=== PATIENT | female | born 1945 | race Caucasian/White ===

== ENCOUNTER 2018-12-07 19:16 | Inpatient (IN) | payer OTHER, MEDICARE ==
--- NOTE | 2018-12-07 19:44 | PDOC ---
History of Present Illness - General Chief Complaint: Chest Pain Stated Complaint: CHEST PAIN Time Seen by Provider: 12/07/18 19:34 - History of Present Illness Initial Comments: 12/07/18 19:40 73 yo F with h/o HTN, HLD, AAA, COPD who p/w right sided chest pain. Patient reports 1 week of exertional, non-pleuritic, non radiating, pressure type, worsening, right sided chest pain, slightly improved with supine positioning. Pain present at rest. Also endorses transietn SOB, this evening, and "heart racing" at rest. Patient reports recent medication change x 1 week ago by PMD. Discontinued Losartan Amlodipine, and now on Nifedipine, and Candasartan. Recent Epidural x 1 week. Denies prolonged immobilization or recent flights, or trauma. Patient denies [place], vision change, palpitations, cough, wheezing, orthopena, PND , leg swelling/pain, N/V, F,C, urinary complaints, hematuria, BPR, abdominal pain, diarrhea, constipation, lightheadedness, weakness, sensory changes. PMHx: as noted above. Denies h/o DVT/PE, ACS/FL, stent placement, CABG. Does not f/w cardiology. ROS: as noted SHx: distant 50 year ppd smoking hx. Allergies: NKDA PMD: Dr. Snell Past History - Past Medical History Allergies/Adverse Reactions: Allergies Allergy/AdvReac Type Severity Reaction Status Date / Time Iodinated Contrast- Oral and Allergy Verified 12/07/18 21:14 IV Dye IV CONTRAST Allergy Uncoded 12/07/18 19:27 Home Medications: Ambulatory Orders Candesartan Cilexetil [Atacand] 16 mg PO DAILY 12/07/18 Escitalopram Oxalate [Lexapro -] 10 mg PO DAILY 12/07/18 Metoprolol Succinate [Toprol Xl] 50 mg PO DAILY 12/07/18 Nifedipine [Procardia Xl] 30 mg PO DAILY 12/07/18 Pregabalin [Lyrica] 25 mg PO BID 12/07/18 Cardiac Disorders: Yes COPD: Yes HTN: Yes Hypercholesterolemia: Yes Thyroid Disease: Yes (hyperthyroidism) Other medical history: sylvian aly syndrome - Surgical History Abdominal Surgery: Yes Cholecystectomy: Yes - Suicide/Smoking/Psychosocial Hx Smoking Status: Yes Smoking History: Never smoked Have you smoked in the past 12 months: No Number of Cigarettes Smoked Daily: 0 Information on smoking cessation initiated: No 'Breaking Loose' booklet given: 01/19/15 Hx Alcohol Use: No Drug/Substance Use Hx: No Substance Use Type: None Hx Substance Use Treatment: No Review of Systems - Review of Systems Comments:: 12/07/18 19:41 GENERAL/CONSTITUTIONAL: No fever or chills. No weakness. HEAD, EYES, EARS, NOSE AND THROAT: No change in vision. No ear pain or discharge. No sore throat. CARDIOVASCULAR: No chest pain or shortness of breath RESPIRATORY: No cough, wheezing, or hemoptysis. GASTROINTESTINAL: No nausea, vomiting, diarrhea or constipation. GENITOURINARY: No dysuria, frequency, or change in urination. MUSCULOSKELETAL: No joint or muscle swelling or pain. No neck or back pain. SKIN: No rash NEUROLOGIC: No headache, vertigo, loss of consciousness, or change in strength/ sensation. ENDOCRINE: No increased thirst. No abnormal weight change HEMATOLOGIC/LYMPHATIC: No anemia, easy bleeding, or history of blood clots. ALLERGIC/IMMUNOLOGIC: No hives or skin allergy. *Physical Exam - Vital Signs Last Vital Signs Temp Pulse Resp BP Pulse Ox 98.1 F 137 H 16 199/82 H 100 12/07/18 19:24 12/07/18 19:24 12/07/18 19:24 12/07/18 19:24 12/07/18 19:24 - Physical Exam Comments: 12/07/18 19:41 GENERAL: Awake, alert, and fully oriented, in no acute distress HEAD: No signs of trauma, normocephalic, atraumatic EYES: PERRLA, EOMI, sclera anicteric, conjunctiva clear ENT: Auricles normal inspection, hearing grossly normal, nares patent, oropharynx clear without exudates. Moist mucosa NECK: Normal ROM, supple, no lymphadenopathy, JVD, or masses LUNGS: No distress, speaks full sentences, clear to auscultation bilaterally HEART: Irregular rate and nml rhythm, normal S1 and S2, no murmurs, rubs or gallops, peripheral pulses normal and equal bilaterally. ABDOMEN: Soft, nontender, normoactive bowel sounds. No guarding, no rebound. No masses EXTREMITIES : Normal inspection, Normal range of motion, no edema. No clubbing or cyanosis. NEUROLOGICAL: Cranial nerves II through XII grossly intact. Normal speech, normal gait, no focal sensorimotor deficits SKIN: Warm, Dry, normal turgor, no rashes or lesions noted Moderate Sedation - Procedure Monitoring Vital Signs: Procedure Monitoring Vital Signs Temperature 98.1 F 12/07/18 19:24 Pulse Rate 137 H 12/07/18 19:24 Respiratory Rate 16 12/07/18 19:24 Blood Pressure 199/82 H 12/07/18 19:24 O2 Sat by Pulse Oximetry (%) 100 12/07/18 19:24 Heart Score/ECG Review - History History: Slightly suspicious - Electrocardiogram EKG: Non specific repolarization disturbance - Age Age: >/= 65 - Risk Factors Risk Factors Heart Score: Yes Hx Hypercholesterolemia, Yes Hx Hypertension, Yes Hx Diabetes, Yes Smoking History, Yes Positive family hx of cardiac disease, Yes Hx Obesity Based on the list above the patient has:: >/=3 risk factors or Hx atherosclerotic disease - Troponin Troponin: </= normal limit - Score Heart Score - Total: 5 ED Treatment Course - LABORATORY CBC & Chemistry Diagram: 12/07/18 20:15 12/07/18 20:15 Medical Decision Making - Medical Decision Making 12/07/18 19:42 73 yo F with h/o HTN, HLD, AAA, COPD who p/w right sided chest pain. HR 137, BP 199/82, vitals otherwise wnl, AF ACS/FL r/o. Physical exam unremarkable. Will assess for HTN emergency, and evidence of end organ dysfunction. low risk PE Weils criteria. Will assess for cardiac dysarrythmias, aortic aneurysm, hypoglycemia, electrolyte abnml, metabolic and toxic derangements, acid-base disturbances, infection. 12/07/18 19:43 ED Course: EKG: Sinus tachycardia HR 127, asbent NATHALY, STD. Nml interval duration and axis Labetalol 20 12/07/18 20:27 Patient with documented IV contrast allergy ( 12/07/18). Will provide adequate IVF resuscitation and pre-contrast medication NS 1 L, Diphenhydramine, Methylprednisilone 125, Have discussed with patient risk and benefit of IV contrast study, and patient expresses understanding, and agrees to study CBC, CMP: Unremarkable 12/07/18 22:13 TSH: 0.01, T4 11.6 12/07/18 23:40 Heart score 5 12/07/18 23:40 156/71 BP, HR 106 Plan to admit tele/obs for persistent Right sided chest pain 12/07/18 23:41 CT AP, CT CHEST: Unremarkable 3.9 x 2.9 infrarenal abdominal aortic aneurysm 12/08/18 00:[address] Francesca Rodriguez. Admit to tele/obs *DC/Admit/Observation/Transfer Diagnosis at time of Disposition: Chest pain at rest, Rapid palpitations - Discharge Dispostion Decision to Admit order: Yes - Referrals Referrals: Florencio Snell MD [Primary Care Provider] - - Patient Instructions - Post Discharge Activity
[2018-12-07] MEDS ORDERED: LABETALOL HCL 5 MG/1 ML (100MG/20 ML VIAL) IVPUSH ONE (20:13)
[2018-12-07] MEDS ORDERED: methylPREDNISolone NA SUCC 125 MG/2 ML VIAL IVPUSH ONE (20:25)
[2018-12-07] MEDS ORDERED: SODIUM CHLORIDE 1,000 ML IV STA (20:27)
[2018-12-07 20:28] LABS: BASO % 0.6 % (0-2.0); EOS % 0.6 % (0-4.5); HEMATOCRIT 49.3 % (32.4-45.2); HEMOGLOBIN 17.2 GM/dL (10.7-15.3); LYMPH % 22.1 % (8-40); MCH 32.3 pg (25.7-33.7); MCHC 34.9 g/dl (32.0-36.0); MEAN CELL VOLUME 92.7 fl (80-96); MEAN PLT VOLUME 8.3 fl (7.5-11.1); MONO % 9.5 % (3.8-10.2); NEUT % 67.2 % (42.8-82.8); PLATELET COUNT 309 K/MM3 (134-434); RBC 5.32 M/mm3 (3.60-5.2); RDW 12.5 % (11.6-15.6); WHITE BLOOD COUNT 11.8 K/mm3 (4.0-10.0)
--- NOTE | 2018-12-07 20:30 | PDOC ---
Attending Attestation - Resident Resident Name: Juan Brewer - ED Attending Attestation I have performed the following: I have examined & evaluated the patient, The case was reviewed & discussed with the resident, I agree w/resident's findings & plan, Exceptions are as noted - HPI HPI: 12/07/18 20:27 The patient is a 73-year-old female with a past medical history significant for HTN, HLD, COPD, and AAA presents to the emergency department with chest pain. The patient presents with 1-week hx of worsening, right-sided chest pain, that s nonradiating and pressure-like in quality. The patient reports associated symptoms of shortness of breath and episodes of racing heart. The patient reports a recent change in medication, from Losartan and Amlodipine to Nifedipine and Candesartan about a week ago, which she believes is the cause of her symptoms. Denies prior similar symptoms. Denies hx of CAD, stents, hx of blood clots. Denies recent travel or immobilization. Denies leg swelling. Allergies: IV contrast Surgical history: Hysterectomy, cholecystectomy Social history: reports the use of tobacco, denies the use of drugs. PCP - Dr. Snell - Physicial Exam PE: 12/07/18 20:29 GENERAL: Awake, alert, and fully oriented, in no acute distress. HEAD: No signs of trauma EYES: PERRLA, EOMI, sclera anicteric, conjunctiva clear ENT: Auricles normal inspection, hearing grossly normal, nares patent, oropharynx clear without exudates. Moist mucosa NECK: Nontender, no stepoffs, Normal ROM, supple, no lymphadenopathy, JVD, or masses LUNGS: Breath sounds equal, clear to auscultation bilaterally. No wheezes, and no crackles HEART: Tachycardic, normal S1 and S2, no murmurs, rubs or gallops ABDOMEN: Soft, nontender, normoactive bowel sounds. No guarding, no rebound. No masses EXTREMITIES: Normal range of motion, no edema. No clubbing or cyanosis. No cords, erythema, or tenderness NEUROLOGICAL: Cranial nerves II through XII intact. 5/5 strength and sensation in all extremities, Normal speech, normal gait, normal cerebellar function SKIN: Warm, Dry, normal turgor, no rashes or lesions noted. - Critical Care Time Total Critical Care Time: 60 Critical Care Statement: The care of this patient involved high complexity decision making to prevent further life threatening deterioration of the patient 's condition and/or to evaluate & treat vital organ system(s) failure or risk of failure. - Medical Decision Making 12/07/18 20:29 73 F with R sided chest pressure + SOB. Noted to be hypertensive and tachycardic in ED. Pt with no DVT risk factors but given chest pain and tachycardia, will r/o PE. Pt also with h/o AAA. Denies abdominal pain but will need to evaluate aorta for dissection/aneurysm. - Labs, trop - CXR - CTA chest/abd/pelvis - Labetalol push PRN
[2018-12-07 20:40] LABS: INR 0.91 (0.83-1.09); PROTHROMBIN TIME (PATIENT) 10.7 SEC (9.7-13.0)
[2018-12-07 20:55] LABS: ALBUMIN 4.1 g/dl (3.4-5.0); ALK PHOS 87 U/L (45-117); ANION GAP 9 MMOL/L (8-16); BILIRUBIN,TOTAL 0.2 mg/dL (0.2-1); BLOOD UREA NITROGEN 17 mg/dL (7-18); CALCIUM 9.2 mg/dL (8.5-10.1); CHLORIDE 103 mmol/L (98-107); CO2 26 mmol/L (21-32); CREATININE 1.1 mg/dL (0.55-1.3); GLUCOSE,RANDOM 156 mg/dL (74-106); POTASSIUM 3.8 mmol/L (3.5-5.1); SGOT/AST 17 U/L (15-37); SGPT/ALT 28 U/L (13-61); SODIUM 138 mmol/L (136-145)
[2018-12-07 20:58] LABS: MAGNESIUM 2.4 mg/dL (1.8-2.4)
[2018-12-07] MEDS ORDERED: ASPIRIN 81 MG CHEWABLE TABLETS PO ONE (23:42)
[2018-12-08] MEDS ORDERED: ASPIRIN 81 MG CHEWABLE TABLETS ONE (00:06)
--- NOTE | 2018-12-08 00:41 | HP ---
CHIEF COMPLAINT: SOB+ Chest Pain PCP: Dr Snell HISTORY OF PRESENT ILLNESS: Pt is a 73 y/o lady with a significant past medical history of AAA, HLD, HTN, Subclavian Steel Syndrome, and COPD presented to [facility] c/o shortness of breath and chest pain for 1 week duration. Pt states that her pain is nonradiating. Pain is located mainly on right side of chest and is exacerbated with deep palpation and when lying supine. Pain preceded by palpitations. Pt endorses that last week, her medication regimen for her HTN was changed as her medications Losartan and Amlodipine were switched to Nifedipine and Candesartan. Pt attributed this to a recall of these medications. Furthermore, pt endorses that approximately 4 years ago, she experienced similar symptoms which also commenced shortly after a medication regimen change. Denies LOC, Nausea/vomiting/fevers. PSurgHx: Cholecystectomy, Social Hx Former smoker, quit 1 year ago. Used to smoke 1 1/2 pack per day. 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 was notable for: (1) BP 199 systolic (2) 2nd Troponin 0.45 (1st was .05) (3) CTA Chest--> No evidence of P.E Iodinated Contrast- Oral and IV Dye Allergy (Verified 12/07/18 21:14) IV CONTRAST Allergy (Uncoded 12/07/18 19:27) HOME MEDICATIONS: Home Medications Medication Instructions Recorded Candesartan Cilexetil [Atacand] 16 mg PO DAILY 12/07/18 Escitalopram Oxalate [Lexapro -] 10 mg PO DAILY 12/07/18 Metoprolol Succinate [Toprol Xl] 50 mg PO DAILY 12/07/18 Nifedipine [Procardia Xl] 30 mg PO DAILY 12/07/18 Pregabalin [Lyrica] 25 mg PO BID 12/07/18 REVIEW OF SYSTEMS CONSTITUTIONAL: Absent: fever, chills, diaphoresis, generalized weakness, malaise, loss of appetite, weight change HEENT: Absent: rhinorrhea, nasal congestion, throat pain, throat swelling, difficulty swallowing, mouth swelling, ear pain, eye pain, visual changes CARDIOVASCULAR: PRESENT: chest pain, palpitations, irregular heart rate, RESPIRATORY: PRESENT: shortness of breath, dyspnea with exertion GASTROINTESTINAL: Absent: abdominal pain, abdominal distension, nausea, vomiting, diarrhea, constipation, melena, hematochezia GENITOURINARY: Absent: dysuria, frequency, urgency, hesitancy, hematuria, flank pain, genital pain MUSCULOSKELETAL: Absent: myalgia, arthralgia, joint swelling, back pain, neck pain SKIN: Absent: rash, itching, pallor HEMATOLOGIC/IMMUNOLOGIC: Absent: easy bleeding, easy bruising, lymphadenopathy, frequent infections ENDOCRINE: Absent: unexplained weight gain, unexplained weight loss, heat intolerance, cold intolerance NEUROLOGIC: Absent: headache, focal weakness or paresthesias, dizziness, unsteady gait, seizure, mental status changes, bladder or bowel incontinence PSYCHIATRIC: Absent: anxiety, depression, suicidal or homicidal ideation, hallucinations. PHYSICAL EXAMINATION Vital Signs - 24 hr 12/07/18 12/07/18 19:24 20:55 Temperature 98.1 F Pulse Rate 137 H Pulse Rate [ 106 H Right] Respiratory 16 20 Rate Blood Pressure 199/82 H Blood Pressure 156/71 [Right Arm] O2 Sat by Pulse 100 97 Oximetry (%) GENERAL: AAOX3 NAD HEAD: Normal with no signs of trauma. EYES: EOMI Sclera Clear EARS, NOSE, THROAT: Ears normal, nares patent, oropharynx clear without exudates. Moist mucous membranes. NECK: Supple No JVD appreciated LUNGS:CTAB HEART: RRR nl S1S2 ABDOMEN: Soft NDNT. MUSCULOSKELETAL: FROM throughout LOWER EXTREMITIES: No clubbing cyanosis or edema NEUROLOGICAL: Cranial nerves II-XII intact. PSYCHIATRIC: Cooperative. Good eye contact. Appropriate mood and affect. SKIN: Warm, dry, normal turgor, no rashes or lesions noted, normal capillary refill. Laboratory Results - last 24 hr 12/07/18 12/07/18 12/07/18 20:15 20:15 20:15 WBC 11.8 H RBC 5.32 H Hgb 17.2 H Hct 49.3 H MCV 92.7 MCH 32.3 MCHC 34.9 RDW 12.5 Plt Count 309 MPV 8.3 Absolute Neuts (auto) 7.9 Neutrophils % 67.2 Lymphocytes % 22.1 Monocytes % 9.5 Eosinophils % 0.6 Basophils % 0.6 Nucleated RBC % 0 PT with INR 10.70 INR 0.91 Sodium Potassium Chloride Carbon Dioxide Anion Gap BUN Creatinine Creat Clearance w eGFR Random Glucose Calcium Magnesium 2.4 Total Bilirubin AST ALT Alkaline Phosphatase Creatine Kinase 38 Troponin I 0.05 Total Protein Albumin Lipase 337 TSH 12/07/18 20:15 WBC RBC Hgb Hct MCV MCH MCHC RDW Plt Count MPV Absolute Neuts (auto) Neutrophils % Lymphocytes % Monocytes % Eosinophils % Basophils % Nucleated RBC % PT with INR INR Sodium 138 Potassium 3.8 Chloride 103 Carbon Dioxide 26 Anion Gap 9 BUN 17 Creatinine 1.1 Creat Clearance w eGFR 48.96 Random Glucose 156 H Calcium 9.2 Magnesium Total Bilirubin 0.2 AST 17 ALT 28 Alkaline Phosphatase 87 Creatine Kinase Troponin I Total Protein 8.0 Albumin 4.1 Lipase TSH 0.01 L ASSESSMENT/PLAN: Pt is a 73 y/o lady with a significant past medical history of AAA, HLD, HTN, Subclavian Steel Syndrome, and COPD presented to [facility] c/o shortness of breath and chest pain for 1 week duration. #Atypical Chest Pain * Chest pain x 1 week right side nonexertional, reproducible. * Smoking history * Troponin 0.05--> 0.45, continue to trend * Cardio consult * Echocardiogram * Start ASA 81 Daily, Moderate intensity STATIN * Pt at high risk for Coronary Artery Disease in light of HTN history. May benefit from Nuclear Stress test * Current 10 year ASCVD Risk---> 7.7% (cholesterol values used were from pt's most recent values in 2014, lipid profile pending this admission). # HTN * Takes Candesartan at home. Nonformulary here, pt place don Valsartan 160 mg Daily * Procardia Er 30 MG Daily * Toprol 50 mg daily #HLD * Pt not taking any meds. Will perform lipid profile, A1C FEN * No Fluids * Monitor Electrolytes * Low Salt Diet DVT ppx: * SCD's Dispo: Tele Visit type - Emergency Visit Emergency Visit: Yes ED Registration Date: 12/08/18 Care time: The patient presented to the Emergency Department on the above date and was hospitalized for further evaluation of their emergent condition. - New Patient This patient is new to me today: Yes Date on this admission: 12/08/18 - Critical Care Critical Care patient: No
--- NOTE | 2018-12-08 04:56 | PN ---
Teaching Attending Note Name of Resident: Chong Ace ATTENDING PHYSICIAN STATEMENT I saw and evaluated the patient. I reviewed the resident's note and discussed the case with the resident. I agree with the resident's findings and plan as documented. SUBJECTIVE: OBJECTIVE: aaox3 s1 and s2 rrr lungs CTA abdomen soft non-tender no edema PERRLA ASSESSMENT AND PLAN: this is a 73y/o female patient with hx of HTN, ex smoker quit 1 year ago, DL and ?COPD presented with atypical chest pain that is located on the Right side that has been going on for over a week. She stated that she gets these episodes of fast heart beat and feels tight in her chest, moving can make the pain worse, she stated that she had similar pain and tightness few years ago, for which her twisting operator uptitrated her medication, she has not followed up with him since then plan: admit to telemetery for atypical chest pain patient is high risk for CAD due to the history of HTN - she might benefit from a Nuclear stress test will admit to tele for observation consult cardiology obtain echocardiogram star the patient on aspirin avoid DAPT at this time unless there is a suspicion for NSTEMI avoid heparin unless there is an indication c/w blood pressure control moderate intensity lipid profile trend ECG x3 - repeat if the patient is having active chest pain. trend troponin x3
[2018-12-08 06:40] LABS: BASO % 0.1 % (0-2.0); HEMATOCRIT 44.6 % (32.4-45.2); HEMOGLOBIN 15.6 GM/dL (10.7-15.3); LYMPH % 8.9 % (8-40); MCHC 34.9 g/dl (32.0-36.0); MEAN CELL VOLUME 91.6 fl (80-96); MONO % 2.4 % (3.8-10.2); NEUT % 88.6 % (42.8-82.8); PLATELET COUNT 262 K/MM3 (134-434); RBC 4.87 M/mm3 (3.60-5.2); RDW 12.3 % (11.6-15.6); WHITE BLOOD COUNT 10.3 K/mm3 (4.0-10.0)
[2018-12-08 07:06] LABS: ANION GAP 9 MMOL/L (8-16); BLOOD UREA NITROGEN 17 mg/dL (7-18); CALCIUM 8.6 mg/dL (8.5-10.1); CHLORIDE 109 mmol/L (98-107); CHOLESTEROL 185 mg/dL (50-200); CO2 21 mmol/L (21-32); GLUCOSE,RANDOM 216 mg/dL (74-106); HDL CHOLESTEROL 41 mg/dL (40-60); MAGNESIUM 2.5 mg/dL (1.8-2.4); PHOSPHOROUS 3.5 mg/dL (2.5-4.9); POTASSIUM 3.9 mmol/L (3.5-5.1); SODIUM 139 mmol/L (136-145); TRIGLYCERIDES 89 mg/dL (0-150)
[2018-12-08] MEDS ORDERED: VALSARTAN 160 MG TABLET (UD) PO SCH ×2 (10:00)
[2018-12-08] MEDS: ASPIRIN COATED 81 MG TABLET.EC PO SCH (10:10)
[2018-12-08] MEDS: ESCITALOPRAM OXALATE 10 MG TABLET (FP) PO SCH (10:11)
[2018-12-08] MEDS: NIFEdipine E.R. 30 MG TABLET (FP) PO SCH (10:11)
--- NOTE | 2018-12-08 10:50 | PN ---
Progress Note, Physician Chief Complaint: Ms Bartholomew says she is feeling better. Palpitations and sob have resolved. No cp or n/v. - Current Medication List Current Medications: Active Medications Aspirin (Ecotrin -) 81 mg PO DAILY [facility] Last Admin: 12/08/18 10:10 Dose: 81 mg Escitalopram Oxalate (Lexapro -) 10 mg PO DAILY [facility] Last Admin: 12/08/18 10:11 Dose: 10 mg Heparin Sodium (Porcine) (Heparin -) 5,000 unit SQ TID [facility] Metoprolol Succinate (Toprol Xl -) 50 mg PO DAILY [facility] Last Admin: 12/08/18 10:11 Dose: 50 mg Nifedipine (Procardia Xl -) 30 mg PO DAILY [facility] Last Admin: 12/08/18 10:11 Dose: 30 mg Rosuvastatin Calcium (Crestor -) 10 mg PO HS [facility] Valsartan (Diovan -) 160 mg PO DAILY [facility] Last Admin: 12/08/18 10:10 Dose: 160 mg - Objective Vital Signs: Vital Signs Temperature 36.7 C 12/08/18 08:29 Pulse Rate 97 H 12/08/18 08:29 Respiratory Rate 20 12/08/18 08:29 Blood Pressure 175/76 H 12/08/18 08:29 O2 Sat by Pulse Oximetry (%) 99 12/08/18 08:31 Constitutional: Yes: Well Nourished, No Distress, Calm Cardiovascular: Yes: Regular Rate and Rhythm. No: Gallop, Murmur, Rub Respiratory: Yes: Regular, CTA Bilaterally. No: Rales, Rhonchi, Wheezes Gastrointestinal: Yes: Normal Bowel Sounds, Soft. No: Distention, Tenderness Extremities: Yes: WNL Edema: No Labs: CBC, BMP 12/08/18 06:30 12/08/18 06:30 INR, PTT INR 0.91 (0.83-1.09) 12/07/18 20:15 Problem List - Problems (1) Chest pain at rest Assessment/Plan: -currently resolved -case d/w cardiology -slightly elevated troponin -check ECHO Code(s): R07.9 - CHEST PAIN, UNSPECIFIED (2) Rapid palpitations Assessment/Plan: -currently resolved -continue telemetry monitoring -toprol xl increased to 50mg bid Code(s): R00.2 - PALPITATIONS (3) Hyperthyroidism Assessment/Plan: -will d/w Dr Snell patient's treatment in past -patient self discontinued Code(s): E05.90 - THYROTOXICOSIS, UNSP WITHOUT THYROTOXIC CRISIS OR STORM (4) HTN (hypertension) Assessment/Plan: -elevated -increased toprol xl -continue ARB and nifedipine Code(s): I10 - ESSENTIAL (PRIMARY) HYPERTENSION Qualifiers: Hypertension type: essential hypertension Qualified Code(s): I10 - Essential (primary) hypertension (5) Hypercholesteremia Assessment/Plan: -crestor 40mg qhs Code(s): E78.0 - PURE HYPERCHOLESTEROLEMIA * DO NOT USE *
--- NOTE | 2018-12-08 14:14 | PN ---
Progress Note (short form) - Note Progress Note: Chief Complaint: Events noted, notes reviewed, palpitations with associated chest pain, reports dyspnea with exertion History of Present Illness: Seen and examined on telemetry. Full consult dictated Home Medications Medication Instructions Recorded Candesartan Cilexetil [Atacand] 16 mg PO DAILY 12/07/18 Escitalopram Oxalate [Lexapro -] 10 mg PO DAILY 12/07/18 Metoprolol Succinate [Toprol Xl] 50 mg PO DAILY 12/07/18 Nifedipine [Procardia Xl] 30 mg PO DAILY 12/07/18 Pregabalin [Lyrica] 25 mg PO BID 12/07/18 Medications: Current Medications Aspirin (Ecotrin -) 81 mg PO DAILY [facility] Last Admin: 12/08/18 10:10 Dose: 81 mg Escitalopram Oxalate (Lexapro -) 10 mg PO DAILY [facility] Last Admin: 12/08/18 10:11 Dose: 10 mg Heparin Sodium (Porcine) (Heparin -) 5,000 unit SQ TID [facility] Metoprolol Succinate (Toprol Xl -) 50 mg PO DAILY [facility] Last Admin: 12/08/18 10:11 Dose: 50 mg Nifedipine (Procardia Xl -) 30 mg PO DAILY [facility] Last Admin: 12/08/18 10:11 Dose: 30 mg Rosuvastatin Calcium (Crestor -) 10 mg PO [facility] Valsartan (Diovan -) 160 mg PO DAILY [facility] Last Admin: 12/08/18 10:10 Dose: 160 mg Review of Systems Cardiovascular: As noted above Respiratory: denies: Cough or Sputum Production Gastrointestinal: denies: Nausea, Vomiting, Diarrhea, Constipation or Abdominal Pain Musculoskeletal: No Symptoms Reported Endocrine: No Symptoms Reported Vital Signs: Last Vital Signs Temp Pulse Resp BP Pulse Ox 98.1 F 97 H 20 175/76 H 99 12/08/18 08:29 12/08/18 08:29 12/08/18 08:29 12/08/18 08:29 12/08/18 08:31 Intake & Output 12/05/18 12/06/18 12/07/18 12/08/18 23:59 23:59 23:59 23:59 Weight 162 lb Neck: Supple Negative JVD no bruit appreciated Respiratory: Clear to A&P Bilaterally Cardiovascular: S1 S2 Regular Rate Rhythm Gastrointestinal: Soft Benign Normal Bowel Sounds Ext: Negative Edema Labs: Troponin, BNP 12/07/18 12/08/18 12/08/18 20:15 01:02 06:30 Troponin I 0.05 0.45 H 0.41 H CBC, BMP 12/08/18 06:30 12/08/18 06:30 Hepatic Panel Total Bilirubin 0.2 mg/dL (0.2-1) 12/07/18 20:15 AST 17 U/L (15-37) 12/07/18 20:15 ALT 28 U/L (13-61) 12/07/18 20:15 Alkaline Phosphatase 87 U/L (45-117) 12/07/18 20:15 Albumin 4.1 g/dl (3.4-5.0) 12/07/18 20:15 INR, PTT INR 0.91 (0.83-1.09) 12/07/18 20:15 Assessment/Plan ASSESSMENT: 1. 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 Probable diastolic dysfunction with class 0 NYHA classification LV failure 4. Hypertension 5. Diabetes mellitus 6. Hypercholesterolemia 7. Hyperthyroidism, poor compliance with Methimazole therapy administration, self D/C PLAN: 1. Continue B-Blockers and increase dosage 2. Continue Valsartan 3. Continue Procardia 4. Continue ASA and if AF is documented recommend A/C with DOAC's 5. Continue Crestor increase dosage 6. Echocardiography to evaluate LV size and function 7. Therapy re-initiation for management of Hyperthyroidism Semaj Cowart M.D.
[2018-12-08] MEDS: HEPARIN NA (PORCINE) 5,000 UNITS/ML 1ML VIAL SQ SCH ×2 (14:23→23:51)
--- NOTE | 2018-12-08 15:49 | CONS ---
DATE OF CONSULTATION: 12/08/2018 CONSULTATION REQUESTED BY: Florencio Snell MD CHIEF COMPLAINT: Evaluation of palpitations and chest discomfort. A 73-year-old female with known history of hypertensive cardiovascular disease, hypercholesterolemia, hyperthyroidism, currently off methimazole therapy, self-discontinued, degenerative joint disease, who denied any prior history of coronary artery disease or congestive heart failure, who presented to [facility] with sudden onset of palpitations with associated chest heaviness. Symptoms persisted for several hours, at which point patient presented for further evaluation and management. The patient had not reported any similar presentation in the past. The patient reported associated dyspnea. Patient reports dyspnea with mild to moderate physical exertion. Patient denies any orthopnea, paroxysmal nocturnal dyspnea, or peripheral edema. Patient reports fatigue and tiredness. Upon evaluation in the emergency room, patient was noted to have evidence of sinus rhythm. PAST MEDICAL HISTORY: Hypertensive cardiovascular disease, recent therapy adjustments; hypercholesterolemia; hyperthyroidism, currently off methimazole therapy, self-discontinued. SOCIAL HISTORY: Nonsmoker. FAMILY HISTORY: Positive coronary artery disease and hypertension. Allergies to IV CONTRAST. Medical therapy at home included Atacand 16 mg once a day, Lexapro 10 mg once a day, Toprol XL 50 mg once a day, Procardia XL 30 mg once a day, Lyrica 25 mg twice daily. REVIEW OF SYSTEMS: Head and Neck: Denies headache, photophobia, blurring of vision. Respiratory: No cough or sputum production. Cardiovascular: As noted above. Gastrointestinal: Denies nausea, vomiting, diarrhea, abdominal discomfort. Genitourinary: No symptoms reported. Musculoskeletal: Degenerative joint disease. PHYSICAL EXAMINATION: Vital Signs: Blood pressure is 175/76 mmHg. Pulse rate is 97 beats per minute. Head and Neck: Pupils equal, react to light and accommodation. Extraocular muscles are intact. Anicteric sclerae. Negative JVD. No bruit appreciated. Chest: Clear to auscultation and percussion. Cardiovascular: S1, S2 regular. Grade 1/6 systolic ejection murmur. No clicks or gallops. Abdomen: Soft, benign. Normoactive bowel sound. Extremities: Negative edema. 1+ distal pulses. No calf tenderness. Electrocardiogram revealed sinus rhythm, left axis deviation, nonspecific T-wave abnormality. Echocardiography dated January 19, 2015, revealed normal left ventricular size and systolic function, mitral annular calcification, aortic valve leaflet sclerosis, mild aortic valve regurgitation. Myocardial perfusion imaging study performed January 20, 2015, revealed normal myocardial perfusion scan with normal left ventricular contraction pattern, LV gated analysis, with calculated left ventricular ejection fraction of 82%. CT scan of the chest performed, report pending, revealed coronary artery calcification noted. CBC revealed WBC 10.3, hemoglobin 15.6, platelets 262, INR 0.91. Basic metabolic profile revealed glucose 216, hemoglobin A1c 6.8, consistent with diabetes mellitus, sodium 139, potassium 3.9, BUN 17, creatinine 1.0, estimated GFR 54.66, cholesterol 185, LDL 134, triglyceride 89, HDL 41. CPK, troponin I levels were noted. TSH 0.01. ASSESSMENT: 1. Palpitations with chest pain syndrome, clinically presentation highly suspicious of paroxysmal atrial fibrillation in context of poor compliance with methimazole therapy administration, [id number] score of 4. Defer anticoagulation pending documentation of arrhythmia. 2. Coronary artery disease, coronary artery calcification, angina pectoris, with evidence of demand ischemic injury. 3. Probable diastolic left ventricular dysfunction with class 0 [place] [employer] left ventricular failure. 4. Hypertensive cardiovascular disease. 5. Diabetes mellitus. 6. Hypercholesterolemia. 7. Hyperthyroidism, poor compliance with methimazole therapy administration, self-discontinued. RECOMMENDATION: 1. Beta blockers and titration of dosage. 2. Continuation of angiotensin-receptor blockers. 3. Continuation of Procardia. 4. Continuation of aspirin. 5. Atrial fibrillation, as documented. Recommend anticoagulation with direct oral anticoagulant agents. 6. Continuation of Crestor. 7. Echocardiography for evaluation of left ventricular size and systolic function. 8. Therapy reinitiation for management of the above-noted hyperthyroidism. Above was reviewed in detail with the patient. Thank you for the referral. LYNDA GLEZ M.D. [id number]
[2018-12-08] MEDS ORDERED: ROSUVASTATIN CA 10 MG TABLET (FP) PO SCH (22:00)
[2018-12-08] MEDS ORDERED: ROSUVASTATIN CA 40 MG TABLET PO SCH (22:00)
[2018-12-08] MEDS ORDERED: HEPARIN NA (PORCINE) 5,000 UNITS/ML 1ML VIAL ONE (22:41)
[2018-12-08] MEDS ORDERED: VALSARTAN 80 MG TABLET (UD) ONE (22:41)
--- NOTE | 2018-12-08 23:50 | EKG ---
Test Reason : Blood Pressure : / mmHG Vent. Rate : 127 BPM Atrial Rate : 127 BPM P-R Int : 128 ms QRS Dur : 076 ms QT Int : 324 ms P-R-T Axes : 062 -23 061 degrees QTc Int : 470 ms SINUS TACHYCARDIA POSSIBLE LEFT ATRIAL ENLARGEMENT BORDERLINE ECG WHEN COMPARED WITH ECG OF 16-MAY-2016 13:25, VENT. RATE HAS INCREASED BY 60 BPM Confirmed by VENESSA PICKARD MD ([id number]) on 12/08/2018 11:50:21 PM Referred By: Confirmed By:VENESSA PICKARD MD
[2018-12-08] MEDS: VALSARTAN 160 MG TABLET (UD) PO SCH (23:51)
[2018-12-08] MEDS: ROSUVASTATIN CA 20 MG TABLET (FP) PO SCH (23:52)
[2018-12-09] MEDS: HEPARIN NA (PORCINE) 5,000 UNITS/ML 1ML VIAL SQ SCH ×3 (06:31→21:39)
[2018-12-09 06:51] LABS: BASO % 0.4 % (0-2.0); EOS % 0.1 % (0-4.5); HEMATOCRIT 46.5 % (32.4-45.2); HEMOGLOBIN 16.2 GM/dL (10.7-15.3); LYMPH % 26.8 % (8-40); MCH 32.4 pg (25.7-33.7); MCHC 34.8 g/dl (32.0-36.0); MEAN CELL VOLUME 93.1 fl (80-96); MEAN PLT VOLUME 8.3 fl (7.5-11.1); NEUT % 62.7 % (42.8-82.8); PLATELET COUNT 284 K/MM3 (134-434); RDW 12.8 % (11.6-15.6); WHITE BLOOD COUNT 12.9 K/mm3 (4.0-10.0)
[2018-12-09 07:13] LABS: ANION GAP 4 MMOL/L (8-16); BLOOD UREA NITROGEN 21 mg/dL (7-18); CALCIUM 8.9 mg/dL (8.5-10.1); CHLORIDE 107 mmol/L (98-107); CO2 27 mmol/L (21-32); CREATININE 0.8 mg/dL (0.55-1.3); GLUCOSE,RANDOM 137 mg/dL (74-106); MAGNESIUM 2.7 mg/dL (1.8-2.4); PHOSPHOROUS 3.2 mg/dL (2.5-4.9); POTASSIUM 4.1 mmol/L (3.5-5.1); SODIUM 138 mmol/L (136-145)
[2018-12-09] MEDS ORDERED: ZOLPIDEM TARTRATE 5 MG TABLET PO PRN (08:45)
--- NOTE | 2018-12-09 09:51 | PN ---
Progress Note (short form) - Note Progress Note: Dr. Brantley to document today. 3rd day in ER holding.
[2018-12-09] MEDS: NIFEdipine E.R. 30 MG TABLET (FP) PO SCH (10:25)
[2018-12-09] MEDS: ESCITALOPRAM OXALATE 10 MG TABLET (FP) PO SCH (10:25)
[2018-12-09] MEDS: VALSARTAN 160 MG TABLET (UD) PO SCH ×2 (10:25→21:39)
[2018-12-09] MEDS: ASPIRIN COATED 81 MG TABLET.EC PO SCH (10:25)
--- NOTE | 2018-12-09 10:29 | PN ---
Teaching Attending Note Name of Resident: Amy Chávez ATTENDING PHYSICIAN STATEMENT I saw and evaluated the patient. I reviewed the resident's note and discussed the case with the resident. I agree with the resident's findings and plan as documented. SUBJECTIVE: Ms Bartholomew is without complaint today. Denies cp, sob, n/v. OBJECTIVE: Last Vital Signs Temp Pulse Resp BP Pulse Ox 36.5 C 70 18 124/68 96 12/09/18 17:54 12/09/18 17:54 12/09/18 18:05 12/09/18 17:54 12/09/18 18:05 Gen: nad Pulm: ctab w/o w/r/r CV: rrr w/o m/r/g Abd: +bs, s/nt/nd Ext: no c/c/e CBC, BMP 12/09/18 06:10 12/09/18 06:10 ASSESSMENT AND PLAN: (1) Chest pain at rest Assessment/Plan: -currently resolved -ECHO reviewed -continue current management Code(s): R07.9 - CHEST PAIN, UNSPECIFIED (2) Rapid palpitations Assessment/Plan: -currently resolved -continue telemetry monitoring -toprol xl increased to 50mg bid this admission Code(s): R00.2 - PALPITATIONS (3) Hyperthyroidism Assessment/Plan: - d/w Dr Snell -sees Dr Johnson, consulted -restart tapazole Code(s): E05.90 - THYROTOXICOSIS, UNSP WITHOUT THYROTOXIC CRISIS OR STORM (4) HTN (hypertension) Assessment/Plan: -controlled -increased toprol xl as above -continue ARB and nifedipine Code(s): I10 - ESSENTIAL (PRIMARY) HYPERTENSION Qualifiers: Hypertension type: essential hypertension Qualified Code(s): I10 - Essential (primary) hypertension (5) Hypercholesteremia Assessment/Plan: -crestor 40mg qhs Code(s): E78.0 - PURE HYPERCHOLESTEROLEMIA * DO NOT USE * Problem List - Problems (1) Chest pain at rest Code(s): R07.9 - CHEST PAIN, UNSPECIFIED (2) Rapid palpitations Code(s): R00.2 - PALPITATIONS (3) Hyperthyroidism Code(s): E05.90 - THYROTOXICOSIS, UNSP WITHOUT THYROTOXIC CRISIS OR STORM (4) HTN (hypertension) Code(s): I10 - ESSENTIAL (PRIMARY) HYPERTENSION Qualifiers: Qualified Code(s): I10 - Essential (primary) hypertension (5) Hypercholesteremia Code(s): E78.0 - PURE HYPERCHOLESTEROLEMIA * DO NOT USE *
--- NOTE | 2018-12-09 10:54 | PN ---
Progress Note, Physician Chief Complaint: Events noted Feels better History of Present Illness: Patient was seen and examined. Awake and alert. Chart was reviewed Denies chest pain, less SOB and denies palpitations - Current Medication List Current Medications: Active Medications Aspirin (Ecotrin -) 81 mg PO DAILY [facility] Last Admin: 12/09/18 10:25 Dose: 81 mg Escitalopram Oxalate (Lexapro -) 10 mg PO DAILY [facility] Last Admin: 12/09/18 10:25 Dose: 10 mg Heparin Sodium (Porcine) (Heparin -) 5,000 unit SQ TID [facility] Last Admin: 12/09/18 06:31 Dose: Not Given Metoprolol Succinate (Toprol Xl -) 50 mg PO BID [facility] Last Admin: 12/09/18 10:25 Dose: 50 mg Nifedipine (Procardia Xl -) 30 mg PO DAILY [facility] Last Admin: 12/09/18 10:25 Dose: 30 mg Rosuvastatin Calcium (Crestor -) 40 mg PO HS [facility] Last Admin: 12/08/18 23:52 Dose: 40 mg Valsartan (Diovan -) 160 mg PO BID [facility] Last Admin: 12/09/18 10:25 Dose: 160 mg Zolpidem Tartrate (Ambien -) 5 mg PO HS PRN PRN Reason: INSOMNIA - Objective Vital Signs: Vital Signs Temperature 98.4 F 12/09/18 06:40 Pulse Rate 73 12/09/18 07:30 Respiratory Rate 20 12/09/18 07:30 Blood Pressure 142/69 12/09/18 07:30 O2 Sat by Pulse Oximetry (%) 95 12/09/18 07:30 Eyes: Yes: PERRL HENT: Yes: Atraumatic Neck: Yes: Supple Cardiovascular: Yes: Tachycardia, Pulse Irregular, S1, S2 Respiratory: Yes: Diminished Gastrointestinal: Yes: Normal Bowel Sounds, Soft. No: Tenderness Edema: No Additional Findings/Remarks: Review of Systems Cardiovascular: denies: chest pain, palpitation, (+) SOB Respiratory: denies: Cough or Sputum Production Gastrointestinal: denies: Nausea, Vomiting, Diarrhea, Constipation or Abdominal Pain Musculoskeletal: No Symptoms Reported Endocrine: No Symptoms Reported Labs: CBC, BMP 12/09/18 06:10 12/09/18 06:10 Problem List - Problems (1) Hyperthyroidism Code(s): E05.90 - THYROTOXICOSIS, UNSP WITHOUT THYROTOXIC CRISIS OR STORM (2) COPD (chronic obstructive pulmonary disease) Code(s): J44.9 - CHRONIC OBSTRUCTIVE PULMONARY DISEASE, UNSPECIFIED Qualifiers: COPD type: unspecified COPD Qualified Code(s): J44.9 - Chronic obstructive pulmonary disease, unspecified (3) HTN (hypertension) Code(s): I10 - ESSENTIAL (PRIMARY) HYPERTENSION Qualifiers: Hypertension type: essential hypertension Qualified Code(s): I10 - Essential (primary) hypertension (4) Hypercholesteremia Code(s): E78.0 - PURE HYPERCHOLESTEROLEMIA * DO NOT USE * (5) Atrial fibrillation Code(s): I48.91 - UNSPECIFIED ATRIAL FIBRILLATION Qualifiers: Atrial fibrillation type: paroxysmal Qualified Code(s): I48.0 - Paroxysmal atrial fibrillation (6) Diabetes mellitus Code(s): E11.9 - TYPE 2 DIABETES MELLITUS WITHOUT COMPLICATIONS (7) CAD (coronary artery disease) Code(s): I25.10 - ATHSCL HEART DISEASE OF [place] CORONARY ARTERY W/O ANG PCTRS Assessment/Plan 1. Palpitations with chest pain syndrome, clinical presentation is highly suspicious of paroxysmal atrial fibrillation in context of poor compliance with Methimazole therapy ([id number] score of 4) 2. CAD coronary artery calcification angina pectoris with evidence of demand ischemic injury 3. Probable diastolic dysfunction with class 0 NYHA classification LV failure 4. Hypertension 5. Diabetes mellitus 6. Hypercholesterolemia 7. Hyperthyroidism PLAN: 1. Continue Metoprolol ER 2. Continue Valsartan 3. Continue Procardia 4. Continue ASA and if AF is documented recommend A/C with DOAC's 5. Continue Crestor 6. Echocardiography to evaluate LV size and function 7. Hyperthyroidism management Zeyad Farias MD
--- NOTE | 2018-12-09 13:32 | CONSULT ---
Consultation: REQUESTING PROVIDER: Dr. Brantley CONSULT REQUEST: We have been asked to medically evaluate this patient for Endocrinology (Dr. Johnson). HISTORY OF PRESENT ILLNESS: 73 y/o F with PMHx of Hypertensive CVD, Hyperthyroidism (Self-Discontinued Methimazole) HLD, COPD (Not on Home O2), AAA, Subclavian Steel Syndrome, presented to [facility] with atypical, reproducible right sided chest pain. Approximately 2 months ago, patient was informed that her "thyroid test was normal" and she self-discontinued her home dose methimazole. She has remained asymptomatic until Sunday evening at which point she experienced the above describe chest pain accompanied by SOB, palpitations, weakness and nausea. The palpitations did not resolve and patient visited [facility]. This is the first time she has experienced these sx's and she is unable to identify a triggering event. During my interview, patient mentions that the she continues to have intermittent chest pain that is initiated by activity however no longer having palpitations. Additionally, she mentions increased stress in her life due to recent financial hardship. Patient was present at bedside. Patient follows with Cardiology (Dr. Farias) and recently, her antihypertensive regimen was changed; she is now taking Nifedipine and Candesartan. Her initial hypertension and tachycardia have since improved. On presentation, she was found to have elevated troponin (Trended down), A1c 6.8%, LDL 134, TSH 0.01, FT4 1.13. Denies any recent fevers, chills, vomiting, diarrhea, constipation, dysuria, hematuria. No recent hospitalizations, recent travel or recent sick contacts. SHx: Cholecystectomy, x 1 Allergies: IV Contrast, NKDA Social Hx: Quit smoking 1 year ago(1.5 ppd x 54 years prior), Denies EtOH or Drug use, Retired, Lives at home with , Daughter recently moved to halfway (Developmentally delayed), Ambulation without assitance REVIEW OF SYSTEMS: As per HPI PHYSICAL EXAMINATION Vital Signs - 24 hr 12/08/18 12/08/18 12/09/18 15:47 16:52 05:09 Temperature 99.0 F 98.1 F Pulse Rate Pulse Rate [ 90 90 Right] Respiratory 18 17 18 Rate Blood Pressure Blood Pressure 151/63 106/64 [Right Arm] O2 Sat by Pulse 98 97 98 Oximetry (%) 12/09/18 12/09/18 12/09/18 06:40 07:30 10:55 Temperature 98.4 F Pulse Rate 73 Pulse Rate [ 74 72 Right] Respiratory 20 20 18 Rate Blood Pressure 142/69 Blood Pressure 145/67 146/89 [Right Arm] O2 Sat by Pulse 95 95 96 Oximetry (%) GENERAL: A&Ox3, NAD HEAD: NCAT EYES: PERRL, EOMI, sclera anicteric, No lid lag EARS, NOSE, THROAT: Oropharynx clear without exudates. MMM NECK: No JVD LUNGS: Diminished breath sounds at the bases. No wheezes, no crackles. HEART: Regular rate and rhythm, normal S1 and S2, 1/6 systolic ejection murmur ABDOMEN: Soft, nontender, not distended, + bowel sounds, no guarding EXTREMITIES: 2+ pulses, warm, No edema NEUROLOGICAL: Cranial nerves II-XII intact. Normal speech. Gross sensation intact throughout. 5/5 muscle strength throughout PSYCHIATRIC: Cooperative. Good eye contact. Appropriate mood and affect. SKIN: Warm, dry. Erythema over the lower neck skin. Laboratory Results - last 24 hr 12/09/18 12/09/18 12/09/18 06:10 06:10 06:10 WBC 12.9 H RBC 5.00 Hgb 16.2 H Hct 46.5 H MCV 93.1 MCH 32.4 MCHC 34.8 RDW 12.8 Plt Count 284 MPV 8.3 Absolute Neuts (auto) 8.1 H Neutrophils % 62.7 D Lymphocytes % 26.8 D Monocytes % 10.0 D Eosinophils % 0.1 D Basophils % 0.4 D Nucleated RBC % 0 Sodium 138 Potassium 4.1 Chloride 107 Carbon Dioxide 27 Anion Gap 4 L BUN 21 H Creatinine 0.8 Creat Clearance w eGFR 70.71 Random Glucose 137 H Calcium 8.9 Phosphorus 3.2 Magnesium 2.7 H Free T4 1.13 Active Medications Aspirin (Ecotrin -) 81 mg PO DAILY [facility] Last Admin: 12/09/18 10:25 Dose: 81 mg Escitalopram Oxalate (Lexapro -) 10 mg PO DAILY [facility] Last Admin: 12/09/18 10:25 Dose: 10 mg Heparin Sodium (Porcine) (Heparin -) 5,000 unit SQ TID [facility] Last Admin: 12/09/18 14:10 Dose: 5,000 unit Metoprolol Succinate (Toprol Xl -) 50 mg PO BID [facility] Last Admin: 12/09/18 10:25 Dose: 50 mg Nifedipine (Procardia Xl -) 30 mg PO DAILY [facility] Last Admin: 12/09/18 10:25 Dose: 30 mg Rosuvastatin Calcium (Crestor -) 40 mg PO HS [facility] Last Admin: 12/08/18 23:52 Dose: 40 mg Valsartan (Diovan -) 160 mg PO BID [facility] Last Admin: 12/09/18 10:25 Dose: 160 mg Zolpidem Tartrate (Ambien -) 5 mg PO HS PRN PRN Reason: INSOMNIA ASSESSMENT/PLAN: 73 y/o F with PMHx of Hypertensive CVD, Hyperthyroidism (Self-Discontinued Methimazole) HLD, COPD (Not on Home O2), AAA, Subclavian Steel Syndrome, presented to [facility] with atypical, reproducible right sided chest pain. 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 Johnson Dispo: We will continue to follow the patient. Thank you for this consultative opportunity. Visit type - Emergency Visit Emergency Visit: Yes ED Registration Date: 12/08/18 Care time: The patient presented to the Emergency Department on the above date and was hospitalized for further evaluation of their emergent condition. - New Patient This patient is new to me today: Yes Date on this admission: 12/11/18 - Critical Care Critical Care patient: No
--- NOTE | 2018-12-09 14:50 | ECHO ---
Name: TASIA SWANSON Exam:Adult Echocardiogram Study Date: 12/09/2018 12:48 PM Age: 73 yrs Reason For Study: CHEST PAIN Height: 62 in Weight: 162 lb BSA: 1.7 m2 MMode/2D Measurements & Calculations IVSd: 0.74 cm Ao root diam: 2.9 cm LVIDd: 4.2 cm LA dimension: 3.9 cm LVIDs: 2.6 cm LVPWd: 0.78 cm EDV(Teich): 76.4 ml LVOT diam: 2.0 cm ESV(Teich): 24.2 ml Doppler Measurements & Calculations MV E max wilbur: 70.9 cm/sec Ao V2 max: 148.2 cm/sec MV A max wilbur: 107.2 cm/sec Ao max P.8 mmHg MV E/A: 0.66 AI P1/2t: 864.7 msec MV dec time: 0.24 sec MANOLO(V,D): 2.1 cm2 AI max wilbur: 415.3 cm/sec LV V1 max P.8 mmHg AI max P.0 mmHg LV V1 mean P.0 mmHg AI dec slope: 140.7 cm/sec2 LV V1 max: 97.5 cm/sec LV V1 mean: 59.9 cm/sec LV V1 VTI: 22.9 cm SV(LVOT): 74.5 ml Med Peak E' Wilbur: 2.9 cm/sec Med E/e': 24.3 Lat Peak E' Wilbur: 4.6 cm/sec Lat E/e': 15.4 Procedure A complete two-dimensional transthoracic echocardiogram was performed (2D, M-mode, Doppler and color flow Doppler). Technically limited study. Left Ventricle The left ventricle is normal in size. Left ventricular systolic function is normal. Ejection Fraction = 65- 70%. No regional wall motion abnormalities noted. Right Ventricle The right ventricle is normal size. The right ventricular systolic function is normal. Atria The left atrial size is normal. Right atrial size is normal. Mitral Valve There is moderate mitral annular calcification. There is trace mitral regurgitation. Tricuspid Valve The tricuspid valve is normal in structure and function. No tricuspid regurgitation. Aortic Valve There is mild aortic sclerosis.;. Mild aortic regurgitation. Pulmonic Valve The pulmonic valve is not well visualized. Great Vessels The aortic root is normal size. Pericardium/Pleura There is no pericardial effusion. Interpretation Summary The left ventricle is normal in size. Left ventricular systolic function is normal. No regional wall motion abnormalities noted. Ejection Fraction = 65-70%. The right ventricular systolic function is normal. The left atrial size is normal. Right atrial size is normal. There is moderate mitral annular calcification. There is trace mitral regurgitation. There is mild aortic sclerosis.; Mild aortic regurgitation. There is no pericardial effusion. Previous study is not available for comparison Zeyad Farias MD 12/09/2018 02:49 PM
[2018-12-09] MEDS: METHIMAZOLE 5 MG TABLET (FP) PO SCH (15:31)
--- NOTE | 2018-12-09 17:36 | PN ---
Physical Exam: SUBJECTIVE: Patient seen and examined; no acute distress; denies chest pain; sob ; palpitations OBJECTIVE: Vital Signs Period Temp Pulse Resp BP Sys/Burton Pulse Ox Last 24 Hr 98.4 F 72-74 18-20 142-146/67-89 95-98 GENERAL: The patient is awake, alert, and fully oriented, in no acute distress. LUNGS: Breath sounds equal, clear to auscultation bilaterally, no wheezes, no crackles, no accessory muscle use. HEART: Regular rate and rhythm, S1, S2 without murmur, rub or gallop. ABDOMEN: Soft, nontender, nondistended, normoactive bowel sounds, no guarding, no rebound, no hepatosplenomegaly, no masses. EXTREMITIES: 2+ pulses, warm, well-perfused, no edema. NEUROLOGICAL: Cranial nerves II through XII grossly intact. Normal speech, gait not observed. PSYCH: Normal mood, normal affect. SKIN: Warm, dry, normal turgor, no rashes or lesions noted Laboratory Results - last 24 hr 12/07/18 12/09/18 12/09/18 22:00 06:10 06:10 WBC 12.9 H RBC 5.00 Hgb 16.2 H Hct 46.5 H MCV 93.1 MCH 32.4 MCHC 34.8 RDW 12.8 Plt Count 284 MPV 8.3 Absolute Neuts (auto) 8.1 H Neutrophils % 62.7 D Lymphocytes % 26.8 D Monocytes % 10.0 D Eosinophils % 0.1 D Basophils % 0.4 D Nucleated RBC % 0 Sodium 138 Potassium 4.1 Chloride 107 Carbon Dioxide 27 Anion Gap 4 L BUN 21 H Creatinine 0.8 Creat Clearance w eGFR 70.71 Random Glucose 137 H Calcium 8.9 Phosphorus 3.2 Magnesium 2.7 H Free T4 Free T3 3.5 12/09/18 06:10 WBC RBC Hgb Hct MCV MCH MCHC RDW Plt Count MPV Absolute Neuts (auto) Neutrophils % Lymphocytes % Monocytes % Eosinophils % Basophils % Nucleated RBC % Sodium Potassium Chloride Carbon Dioxide Anion Gap BUN Creatinine Creat Clearance w eGFR Random Glucose Calcium Phosphorus Magnesium Free T4 1.13 Free T3 Active Medications Generic Name Dose Route Start Last Admin Trade Name Freq PRN Reason Stop Dose Admin Aspirin 81 mg 12/08/18 10:00 12/09/18 10:25 Ecotrin - PO 81 mg DAILY [facility] Administration Escitalopram Oxalate 10 mg 12/08/18 10:00 12/09/18 10:25 Lexapro - PO 10 mg DAILY [facility] Administration Heparin Sodium (Porcine) 5,000 unit 12/08/18 14:00 12/09/18 14:10 Heparin - SQ 5,000 unit TID [facility] Administration Methimazole 10 mg 12/09/18 14:45 12/09/18 15:31 Tapazole - PO 10 mg DAILY [facility] Administration Metoprolol Succinate 50 mg 12/08/18 22:00 12/09/18 10:25 Toprol Xl - PO 50 mg BID [facility] Administration Nifedipine 30 mg 12/08/18 10:00 12/09/18 10:25 Procardia Xl - PO 30 mg DAILY [facility] Administration Rosuvastatin Calcium 40 mg 12/08/18 23:00 12/08/18 23:52 Crestor - PO 40 mg HS [facility] Administration Valsartan 160 mg 12/08/18 22:00 12/09/18 10:25 Diovan - PO 160 mg BID [facility] Administration Zolpidem Tartrate 5 mg 12/09/18 08:45 Ambien - PO HS PRN INSOMNIA ASSESSMENT/PLAN: 73 y/o F with PMHx of Hypertensive CVD, Hyperthyroidism (Self-Discontinued Methimazole) HLD, COPD (Not on Home O2), AAA, Subclavian Steel Syndrome, presented to [facility] with atypical, reproducible right sided chest pain and palpitations. #chest pain with palpitations/troponinemia: most likely secondary to non compliance of thyroid medication; r/o acs -ECG with sinus tachycardia -troponin elevated most likely to demand ischemia fron tacycardia -echo unremarkable except for mod mitral valve calcification; EF 65-70% -ASA -BB -[facility] -no events on tele -re introduce methimazole -cardio following #hyperthyroid: -0methimazole 10mg daily -endocrine following #HTN: stable -cont meds as above #DM: -start on SS insulin ; see insulin requirement #HLD; cont statin #dvt ppl; heparin sq Visit type - Emergency Visit Emergency Visit: Yes ED Registration Date: 12/08/18 Care time: The patient presented to the Emergency Department on the above date and was hospitalized for further evaluation of their emergent condition. - New Patient This patient is new to me today: Yes Date on this admission: 12/09/18 - Critical Care Critical Care patient: No
[2018-12-09 17:59] VITALS: BMI 30.3
[2018-12-09] MEDS: ROSUVASTATIN CA 20 MG TABLET (FP) PO SCH (21:40)
[2018-12-09] MEDS: INSULIN SLIDING SCALE (NOVOLOG) 1 VIAL SQ SCH (22:00)
[2018-12-10] MEDS: HEPARIN NA (PORCINE) 5,000 UNITS/ML 1ML VIAL SQ SCH (05:35)
[2018-12-10] MEDS: INSULIN SLIDING SCALE (NOVOLOG) 1 VIAL SQ SCH (06:06)
[2018-12-10 07:23] LABS: BASO % 0.8 % (0-2.0); HEMATOCRIT 45.9 % (32.4-45.2); HEMOGLOBIN 15.9 GM/dL (10.7-15.3); LYMPH % 25.5 % (8-40); MCHC 34.7 g/dl (32.0-36.0); MEAN CELL VOLUME 92.2 fl (80-96); MEAN PLT VOLUME 8.5 fl (7.5-11.1); MONO % 9.5 % (3.8-10.2); NEUT % 63.2 % (42.8-82.8); PLATELET COUNT 271 K/MM3 (134-434); RBC 4.98 M/mm3 (3.60-5.2); RDW 12.5 % (11.6-15.6); WHITE BLOOD COUNT 10.3 K/mm3 (4.0-10.0)
[2018-12-10 07:33] LABS: ANION GAP 9 MMOL/L (8-16); BLOOD UREA NITROGEN 28 mg/dL (7-18); CALCIUM 8.9 mg/dL (8.5-10.1); CHLORIDE 110 mmol/L (98-107); CO2 23 mmol/L (21-32); CREATININE 0.8 mg/dL (0.55-1.3); GLUCOSE,RANDOM 128 mg/dL (74-106); MAGNESIUM 2.8 mg/dL (1.8-2.4); PHOSPHOROUS 3.8 mg/dL (2.5-4.9); POTASSIUM 3.9 mmol/L (3.5-5.1); SODIUM 141 mmol/L (136-145)
[2018-12-10 09:01] VITALS: BP 131/74; PULSE 71; TEMP 97.8
[2018-12-10] MEDS ORDERED: PT OWN MED DRAWER 7, Y5N ONE (09:23)
[2018-12-10] MEDS: VALSARTAN 160 MG TABLET (UD) PO SCH (09:43)
[2018-12-10] MEDS: NIFEdipine E.R. 30 MG TABLET (FP) PO SCH (09:43)
[2018-12-10] MEDS: ASPIRIN COATED 81 MG TABLET.EC PO SCH (09:43)
[2018-12-10] MEDS: ESCITALOPRAM OXALATE 10 MG TABLET (FP) PO SCH (09:43)
--- NOTE | 2018-12-10 11:01 | PN ---
Progress Note, Physician Chief Complaint: Events noted Feels better No palpitations History of Present Illness: Patient was seen and examined. Awake and alert. Chart was reviewed Denies chest pain, less SOB and denies palpitations - Current Medication List Current Medications: Active Medications Aspirin (Ecotrin -) 81 mg PO DAILY [facility] Last Admin: 12/10/18 09:43 Dose: 81 mg Escitalopram Oxalate (Lexapro -) 10 mg PO DAILY [facility] Last Admin: 12/10/18 09:43 Dose: 10 mg Heparin Sodium (Porcine) (Heparin -) 5,000 unit SQ TID [facility] Last Admin: 12/10/18 05:35 Dose: 5,000 unit Insulin Aspart (Novolog Vial Sliding Scale -) 1 vial SQ ACHS [facility]; Protocol Last Admin: 12/10/18 06:06 Dose: Not Given Methimazole (Tapazole -) 10 mg PO DAILY [facility] Last Admin: 12/09/18 15:31 Dose: 10 mg Metoprolol Succinate (Toprol Xl -) 50 mg PO BID [facility] Last Admin: 12/10/18 09:43 Dose: 50 mg Nifedipine (Procardia Xl -) 30 mg PO DAILY [facility] Last Admin: 12/10/18 09:43 Dose: 30 mg Rosuvastatin Calcium (Crestor -) 40 mg PO HS [facility] Last Admin: 12/09/18 21:40 Dose: 40 mg Valsartan (Diovan -) 160 mg PO BID [facility] Last Admin: 12/10/18 09:43 Dose: 160 mg Zolpidem Tartrate (Ambien -) 5 mg PO HS PRN PRN Reason: INSOMNIA - Objective Vital Signs: Vital Signs Temperature 97.8 F 12/10/18 09:00 Pulse Rate 71 12/10/18 09:00 Respiratory Rate 18 12/10/18 09:00 Blood Pressure 131/74 12/10/18 09:00 O2 Sat by Pulse Oximetry (%) 96 12/09/18 21:00 Constitutional: Yes: Well Nourished Eyes: Yes: PERRL HENT: Yes: Atraumatic Neck: Yes: Supple Cardiovascular: Yes: Regular Rate and Rhythm, S1, S2 Respiratory: Yes: CTA Bilaterally Gastrointestinal: Yes: Normal Bowel Sounds, Soft. No: Tenderness Edema: No Additional Findings/Remarks: Review of Systems Cardiovascular: denies: chest pain, palpitation, (+) SOB Respiratory: denies: Cough or Sputum Production Gastrointestinal: denies: Nausea, Vomiting, Diarrhea, Constipation or Abdominal Pain Musculoskeletal: No Symptoms Reported Endocrine: No Symptoms Reported Labs: CBC, BMP 12/10/18 06:30 12/10/18 06:30 Problem List - Problems (1) Hyperthyroidism Code(s): E05.90 - THYROTOXICOSIS, UNSP WITHOUT THYROTOXIC CRISIS OR STORM (2) COPD (chronic obstructive pulmonary disease) Code(s): J44.9 - CHRONIC OBSTRUCTIVE PULMONARY DISEASE, UNSPECIFIED Qualifiers: COPD type: unspecified COPD Qualified Code(s): J44.9 - Chronic obstructive pulmonary disease, unspecified (3) HTN (hypertension) Code(s): I10 - ESSENTIAL (PRIMARY) HYPERTENSION Qualifiers: Hypertension type: essential hypertension Qualified Code(s): I10 - Essential (primary) hypertension (4) Hypercholesteremia Code(s): E78.0 - PURE HYPERCHOLESTEROLEMIA * DO NOT USE * (5) Atrial fibrillation Code(s): I48.91 - UNSPECIFIED ATRIAL FIBRILLATION Qualifiers: Atrial fibrillation type: paroxysmal Qualified Code(s): I48.0 - Paroxysmal atrial fibrillation (6) Diabetes mellitus Code(s): E11.9 - TYPE 2 DIABETES MELLITUS WITHOUT COMPLICATIONS (7) CAD (coronary artery disease) Code(s): I25.10 - ATHSCL HEART DISEASE OF [place] CORONARY ARTERY W/O ANG PCTRS Qualifiers: Coronary Disease-Associated Artery/Lesion type: red devil artery [place] vs. transplanted heart: red devil heart Associated angina: without angina Qualified Code(s): I25.10 - Atherosclerotic heart disease of red [place] coronary artery without angina pectoris Assessment/Plan 1. Palpitations with chest pain syndrome, clinical presentation is highly suspicious of paroxysmal atrial fibrillation in context of poor compliance with Methimazole therapy ([id number] score of 4) 2. CAD coronary artery calcification angina pectoris with evidence of demand ischemic injury 3. Probable diastolic dysfunction with class 0 NYHA classification LV failure 4. Hypertension 5. Diabetes mellitus 6. Hypercholesterolemia 7. Hyperthyroidism PLAN: 1. Continue Metoprolol ER 2. Continue Valsartan 3. Continue Procardia 4. Continue ASA and if AF is documented recommend A/C with DOAC - so far normal 5. Continue Crestor 6. Echocardiography was reviewed 7. Hyperthyroidism management Discharge planning cardiac stand point Zeyad Farias MD
[2018-12-10] MEDS: METHIMAZOLE 5 MG TABLET (FP) PO SCH (11:15)
--- NOTE | 2018-12-10 15:02 | DS ---
Physical Exam: SUBJECTIVE: Patient seen and examined; no events on tele monitor; NSR. denies chest pain or shortness of breath. OBJECTIVE: Vital Signs Period Temp Pulse Resp BP Sys/Burton Pulse Ox Last 24 Hr 97.7 F-98.1 F 63-74 18-18 124-145/62-74 96-97 PHYSICAL EXAM GENERAL: The patient is awake, alert, and fully oriented, in no acute distress. HEAD: Normal with no signs of trauma. NECK: Trachea midline, full range of motion, supple. LUNGS: Breath sounds equal, clear to auscultation bilaterally, no wheezes, no crackles, no accessory muscle use. HEART: Regular rate and rhythm, S1, S2 without murmur, rub or gallop. ABDOMEN: Soft, nontender, nondistended, normoactive bowel sounds, no guarding, no rebound, no hepatosplenomegaly, no masses. EXTREMITIES: 2+ pulses, warm, well-perfused, no edema. NEUROLOGICAL: Cranial nerves II through XII grossly intact. Normal speech, gait not observed. PSYCH: Normal mood, normal affect. SKIN: Warm, dry, normal turgor, no rashes or lesions noted. LABS Laboratory Results - last 24 hr 12/07/18 12/09/18 12/10/18 22:00 22:12 05:51 WBC RBC Hgb Hct MCV MCH MCHC RDW Plt Count MPV Absolute Neuts (auto) Neutrophils % Lymphocytes % Monocytes % Eosinophils % Basophils % Nucleated RBC % Sodium Potassium Chloride Carbon Dioxide Anion Gap BUN Creatinine Creat Clearance w eGFR POC Glucometer 121 142 Random Glucose Calcium Phosphorus Magnesium Free T3 3.5 12/10/18 12/10/18 06:30 06:30 WBC 10.3 H RBC 4.98 Hgb 15.9 H Hct 45.9 H MCV 92.2 MCH 32.0 MCHC 34.7 RDW 12.5 Plt Count 271 MPV 8.5 Absolute Neuts (auto) 6.5 Neutrophils % 63.2 Lymphocytes % 25.5 Monocytes % 9.5 Eosinophils % 1.0 D Basophils % 0.8 Nucleated RBC % 0 Sodium 141 Potassium 3.9 Chloride 110 H Carbon Dioxide 23 Anion Gap 9 BUN 28 H Creatinine 0.8 Creat Clearance w eGFR 70.71 POC Glucometer Random Glucose 128 H Calcium 8.9 Phosphorus 3.8 Magnesium 2.8 H Free T3 HOSPITAL COURSE: Date of Admission:12/08/18 Date of Discharge: 12/10/18 73 y/o F with PMHx of Hypertensive CVD, Hyperthyroidism (Self-Discontinued Methimazole) HLD, COPD (Not on Home O2), AAA, Subclavian Steal Syndrome?, presented to [facility] with atypical, reproducible right sided chest pain and palpitations and hypertensive. Patient was non compliant with all medications including her blood pressure medications and hyperthyroid medication. Work up for ACS was negative, echocardiogram was normal, she was evaluated by cardiology and endocrinology. She was restarted on her home blood pressure medications and methimazole. She will follow up with specialists. Minutes to complete discharge: 35 Discharge Summary Reason For Visit: CHEST PAIN AT REST/RAPID PALPITATIONS Condition: Improved - Instructions Diet, Activity, Other Instructions: Ms. Bartholomew , you have been evaluated for symptoms of palpitations and chest pain. You were treated for high blood pressure an hyperthyroids. Please take all of your medications as directed. Please follow up with your public health staff nurse regarding your thyroid and blood sugar level. Recommend diet non fat, low card, no sugar. Please follow up with buffing machine tender and primary with in one week. Referrals: Zeyad Farias MD [Staff Physician] - Kailyn Johnson MD [Staff Physician] - Disposition: HOME - Home Medications Comprehensive Discharge Medication List: Ambulatory Orders Escitalopram Oxalate [Lexapro -] 10 mg PO DAILY 12/07/18 Pregabalin [Lyrica] 25 mg PO BID 12/07/18 Aspirin Coated [Ecotrin -] 81 mg PO DAILY tablet.ec 12/10/18 Metoprolol Succinate 50 mg PO BID 30 Days #60 tab.er.24h 12/10/18 Nifedipine [Procardia Xl] 30 mg PO DAILY 30 Days #30 tab.er.24 12/10/18 Rosuvastatin [Crestor -] 40 mg PO HS 30 Days #30 tablet 12/10/18 Valsartan [Diovan] 160 mg PO BID 30 Days #60 tablet 12/10/18 This patient is new to me today: Yes Date on this admission: 12/10/18 Emergency Visit: Yes ED Registration Date: 12/08/18 Care time: The patient presented to the Emergency Department on the above date and was hospitalized for further evaluation of their emergent condition. Critical Care patient: No - Discharge Referral Referred to [facility] Med P.C.: No
== END 2018-12-10 12:03 | disposition home or self-care (01) | DRG 309 ==
LOC: JER 19:16 → JERBED 23:43 → OBSVTOIN 12-08 01:58 → J4S 12-09 17:28
PROVIDERS: ADMIT Internal Medicine; ATTEND Internal Medicine
DX: I48.0 Paroxysmal atrial fibrillation (principal); I24.8 Other forms of acute ischemic heart disease; R07.89 Other chest pain; I25.119 Atherosclerotic heart disease of native coronary artery with unspecified angina pectoris; I10 Essential (primary) hypertension; E11.9 Type 2 diabetes mellitus without complications; E05.90 Thyrotoxicosis, unspecified without thyrotoxic crisis or storm; E78.5 Hyperlipidemia, unspecified; R00.2 Palpitations
CPT/HCPCS: 36415; 71045-TC-FY; 71275-TC; 74177-TC; 80048; 80053; 80061; 82550; 82962; 83036; 83690; 83721; 83735; 84100; 84436; 84439; 84443; 84479; 84481; 84484; 85025; 85610; 93005; 93010; 93306-TC; 99285-25; G0378; J1644; J7030

== ENCOUNTER 2019-02-07 15:48 | Observation (INO) | payer OTHER, MEDICARE | END 2019-02-10 11:16 | disposition home or self-care (01) | LOC: JER 15:48 → JERBED 20:00 → J4W 22:29 ==

== ENCOUNTER 2020-10-04 15:56 | Emergency (ER) | payer OTHER, MEDICARE ==
[2020-10-04 16:34] VITALS: BP 119/67; PULSE 86; TEMP 97.7; BMI 33.5
[2020-10-04] MEDS ORDERED: ACETAMINOPHEN 325 MG TABLET (FP) PO ONE (16:40)
[2020-10-04] MEDS ORDERED: ACETAMINOPHEN 325 MG TABLET (FP) ONE (16:50)
== END 2020-10-04 18:31 | disposition home or self-care (01) ==
LOC: JER 15:56
DX: M25.551 Pain in right hip (principal); M25.552 Pain in left hip
CPT/HCPCS: 73523-TC-FY; 99284-25

== ENCOUNTER 2020-12-13 19:17 | Emergency (ER) | payer OTHER, MEDICARE ==
[2020-12-13 19:54] VITALS: BP 159/89; PULSE 86; TEMP 98.1; BMI 30.2
[2020-12-13] MEDS ORDERED: ACETAMINOPHEN 500 MG TABLET (FP) PO ONE (20:08)
[2020-12-13] MEDS ORDERED: ACETAMINOPHEN 500 MG TABLET (FP) ONE (20:36)
== END 2020-12-13 22:52 | disposition home or self-care (01) ==
LOC: JER 19:17 → JERFT 19:17
DX: S09.90XA Unspecified injury of head, initial encounter (principal)
CPT/HCPCS: 70450-TC; 99284-25

== ENCOUNTER 2021-03-13 13:38 | Inpatient (IN) | payer OTHER, MEDICARE ==
[2021-03-13 13:49] VITALS: BMI 30.2
[2021-03-13] MEDS ORDERED: LACTATED RINGERS SOLUTION 1000 ML INFUS.BAG IV ONE ×2 (14:28→14:39)
[2021-03-13 14:38] LABS: BASO % 0.6 % (0-2.0); EOS % 1.4 % (0-4.5); HEMATOCRIT 42.8 % (32.4-45.2); HEMOGLOBIN 14.3 GM/dL (10.7-15.3); LYMPH % 14.2 % (8-40); MCH 31.1 pg (25.7-33.7); MCHC 33.3 g/dl (32.0-36.0); MEAN CELL VOLUME 93.4 fl (80-96); MEAN PLT VOLUME 8.5 fl (7.5-11.1); MONO % 7.1 % (3.8-10.2); NEUT % 76.7 % (42.8-82.8); PLATELET COUNT 266 10^3/uL (134-434); RBC 4.58 M/mm3 (3.60-5.2); RDW 12.9 % (11.6-15.6); WHITE BLOOD COUNT 11.7 K/mm3 (4.0-10.0)
[2021-03-13 14:53] LABS: CHLORIDE 107 mmol/L (98-107); SODIUM 140 mmol/L (136-145)
[2021-03-13 14:54] LABS: CALCIUM 9.1 mg/dL (8.5-10.1)
[2021-03-13 14:55] LABS: ALBUMIN 3.7 g/dl (3.4-5.0); ANION GAP 7 MMOL/L (8-16); BLOOD UREA NITROGEN 13.2 mg/dL (7-18); CO2 26 mmol/L (21-32); GLUCOSE,RANDOM 121 mg/dL (74-106); MAGNESIUM 2.4 mg/dL (1.8-2.4)
[2021-03-13 14:58] LABS: CREATININE 1.1 mg/dL (0.55-1.3); SGOT/AST 28 U/L (15-37); SGPT/ALT 17 U/L (13-61)
[2021-03-13 15:00] LABS: BILIRUBIN,TOTAL 0.4 mg/dL (0.2-1); TOT PROT 6.8 g/dl (6.4-8.2)
[2021-03-13 15:01] LABS: ALK PHOS 69 U/L (45-117)
[2021-03-13] MEDS ORDERED: ONDANSETRON 4 MG/2 ML VIAL IVPUSH ONE (16:02)
[2021-03-13] MEDS ORDERED: ONDANSETRON 4 MG/2 ML VIAL ONE (16:03)
[2021-03-13 16:18] LABS: EPI CELLS 9 /uL (0-25.1); HYALINE CASTS 0 /uL (0-3.1); URINE APPEARANCE CLOUDY; URINE BACTERIA >9,000 /uL (0-1359); URINE BILIRUBIN NEGATIVE (NEGATIVE); URINE COLOR YELLOW; URINE GLUCOSE (UA) NEGATIVE (NEGATIVE); URINE KETONE NEGATIVE (NEGATIVE); URINE LEUK ESTERASE TRACE (NEGATIVE); URINE NITRITE POSITIVE (NEGATIVE); URINE PROTEIN NEGATIVE (NEGATIVE); URINE UROBILINOGEN 0.2 mg/dL (0.2-1.0); URINE WBC 8 /uL (0-25.8)
[2021-03-13] MEDS ORDERED: CEPHALEXIN MONOHYDRATE 500 MG CAPSULE (UD) PO ONE (16:41)
[2021-03-13 17:05] LABS: URINE RBC 148.7 /uL (0-23.9)
[2021-03-13] MEDS ORDERED: CEPHALEXIN MONOHYDRATE 500 MG CAPSULE (UD) ONE (17:06)
[2021-03-13] MEDS ORDERED: ONDANSETRON 4 MG/2 ML VIAL IM PRN (17:41)
[2021-03-13] MEDS ORDERED: ACETAMINOPHEN 325 MG TABLET (FP) PO PRN (17:41)
[2021-03-13] MEDS: ATORVASTATIN CA 10 MG TABLET (FP) PO SCH (21:09)
[2021-03-13] MEDS: CEPHALEXIN MONOHYDRATE 500 MG CAPSULE (UD) PO SCH (21:09)
[2021-03-13] MEDS: INSULIN SLIDING SCALE (NOVOLOG) 1 VIAL SQ SCH (21:13)
[2021-03-14] MEDS: INSULIN SLIDING SCALE (NOVOLOG) 1 VIAL SQ SCH ×4 (06:03→21:03)
[2021-03-14 08:13] LABS: HEMATOCRIT 42.1 % (32.4-45.2); HEMOGLOBIN 13.9 GM/dL (10.7-15.3); MCH 31.3 pg (25.7-33.7); MCHC 33.1 g/dl (32.0-36.0); MEAN CELL VOLUME 94.4 fl (80-96); MEAN PLT VOLUME 8.9 fl (7.5-11.1); PLATELET COUNT 233 10^3/uL (134-434); RBC 4.46 M/mm3 (3.60-5.2); RDW 13.1 % (11.6-15.6); WHITE BLOOD COUNT 9.6 K/mm3 (4.0-10.0)
[2021-03-14 08:38] LABS: CALCIUM 8.5 mg/dL (8.5-10.1)
[2021-03-14 08:42] LABS: CREATININE 0.9 mg/dL (0.55-1.3)
[2021-03-14] MEDS: FOLIC ACID 1 MG TABLET (FP) PO SCH (09:19)
[2021-03-14] MEDS: ASPIRIN 81 MG CHEWABLE TABLETS PO SCH (09:19)
[2021-03-14] MEDS: METHIMAZOLE 5 MG TABLET (FP) PO SCH (09:19)
[2021-03-14] MEDS: CEPHALEXIN MONOHYDRATE 500 MG CAPSULE (UD) PO SCH ×2 (09:19→21:03)
[2021-03-14] MEDS: ENOXAPARIN NA (PORCINE) 40 MG/0.4 ML DISP.SYRIN SQ SCH (09:19)
[2021-03-14] MEDS: LOSARTAN POTASSIUM 50 MG TABLET PO SCH (12:16)
[2021-03-14] MEDS: ATORVASTATIN CA 10 MG TABLET (FP) PO SCH (21:03)
[2021-03-15 06:02] VITALS: BP 145/88; PULSE 73; TEMP 98.7
[2021-03-15] MEDS: INSULIN SLIDING SCALE (NOVOLOG) 1 VIAL SQ SCH ×2 (06:23→11:17)
[2021-03-15 09:22] LABS: BASO % 0.8 % (0-2.0); EOS % 1.8 % (0-4.5); HEMATOCRIT 45.2 % (32.4-45.2); HEMOGLOBIN 14.9 GM/dL (10.7-15.3); LYMPH % 18.4 % (8-40); MCH 31.2 pg (25.7-33.7); MEAN CELL VOLUME 94.4 fl (80-96); MEAN PLT VOLUME 9.1 fl (7.5-11.1); MONO % 6.8 % (3.8-10.2); NEUT % 72.2 % (42.8-82.8); PLATELET COUNT 258 10^3/uL (134-434); RBC 4.79 M/mm3 (3.60-5.2); RDW 12.9 % (11.6-15.6); WHITE BLOOD COUNT 10.6 K/mm3 (4.0-10.0)
[2021-03-15 09:29] LABS: CALCIUM 9.4 mg/dL (8.5-10.1)
[2021-03-15 09:31] LABS: BLOOD UREA NITROGEN 12.5 mg/dL (7-18)
[2021-03-15] MEDS: LOSARTAN POTASSIUM 50 MG TABLET PO SCH (09:36)
[2021-03-15] MEDS: FOLIC ACID 1 MG TABLET (FP) PO SCH (09:36)
[2021-03-15] MEDS: ASPIRIN 81 MG CHEWABLE TABLETS PO SCH (09:36)
[2021-03-15] MEDS: CEPHALEXIN MONOHYDRATE 500 MG CAPSULE (UD) PO SCH (09:36)
[2021-03-15] MEDS: METHIMAZOLE 5 MG TABLET (FP) PO SCH (09:36)
[2021-03-15] MEDS: ENOXAPARIN NA (PORCINE) 40 MG/0.4 ML DISP.SYRIN SQ SCH (09:36)
== END 2021-03-15 15:20 | disposition home or self-care (01) | DRG 690 ==
LOC: JER 13:38 → JERBED 16:36 → J8W 18:51
PROVIDERS: ADMIT Internal Medicine; ATTEND Internal Medicine
DX: N39.0 Urinary tract infection, site not specified (principal); I95.1 Orthostatic hypotension; I10 Essential (primary) hypertension; E78.5 Hyperlipidemia, unspecified; E11.9 Type 2 diabetes mellitus without complications; D72.829 Elevated white blood cell count, unspecified; E03.9 Hypothyroidism, unspecified
CPT/HCPCS: 36415; 71045-TC-FY; 80048; 80053; 81003; 82550; 82962; 83735; 84443; 84484; 85025; 85027; 87086; 87186; 93005; 93010; 99285-25; C9803; U0003; U0005

== ENCOUNTER 2021-06-19 19:41 | Inpatient (IN) | payer OTHER, MEDICARE ==
[2021-06-19] MEDS ORDERED: ACETAMINOPHEN 1000 MG/100 ML VIAL (NON FORMULARY) IVPB ONE (20:15)
[2021-06-19] MEDS ORDERED: ACETAMINOPHEN INJECTION 100 ML IVPB ONE (20:21)
[2021-06-19 20:41] LABS: BASO % 0.7 % (0-2.0); EOS % 1.7 % (0-4.5); HEMATOCRIT 44.5 % (32.4-45.2); HEMOGLOBIN 15.1 GM/dL (10.7-15.3); LYMPH % 27.8 % (8-40); MCH 31.7 pg (25.7-33.7); MEAN CELL VOLUME 93.2 fl (80-96); MEAN PLT VOLUME 7.7 fl (7.5-11.1); MONO % 8.9 % (3.8-10.2); NEUT % 60.9 % (42.8-82.8); PLATELET COUNT 261 10^3/uL (134-434); RBC 4.77 M/mm3 (3.60-5.2); RDW 12.9 % (11.6-15.6); WHITE BLOOD COUNT 8.5 K/mm3 (4.0-10.0)
[2021-06-19 21:00] LABS: CHLORIDE 108 mmol/L (98-107); SODIUM 143 mmol/L (136-145)
[2021-06-19 21:02] LABS: ALBUMIN 3.8 g/dl (3.4-5.0); CALCIUM 9.2 mg/dL (8.5-10.1)
[2021-06-19 21:03] LABS: ANION GAP 5 MMOL/L (8-16); BLOOD UREA NITROGEN 17.7 mg/dL (7-18); CO2 30 mmol/L (21-32); GLUCOSE,RANDOM 99 mg/dL (74-106)
[2021-06-19 21:05] LABS: SGPT/ALT 20 U/L (13-61)
[2021-06-19 21:06] LABS: CREATININE 1.3 mg/dL (0.55-1.3); SGOT/AST 10 U/L (15-37)
[2021-06-19 21:07] LABS: BILIRUBIN,TOTAL 0.2 mg/dL (0.2-1); TOT PROT 7.3 g/dl (6.4-8.2)
[2021-06-19 21:08] LABS: ALK PHOS 71 U/L (45-117)
[2021-06-19] MEDS ORDERED: LIDOCAINE HCL 1%, 10 MG/ML (20ML VIAL) ONE (21:50)
[2021-06-20] MEDS ORDERED: ACETAMINOPHEN 325 MG TABLET (FP) PO PRN ×2 (02:29→10:12)
[2021-06-20 03:56] LABS: EPI CELLS >36 /uL (0-25.1); HYALINE CASTS 1 /uL (0-3.1); URINE APPEARANCE CLOUDY; URINE BACTERIA 330 /uL (0-1359); URINE BILIRUBIN NEGATIVE (NEGATIVE); URINE COLOR YELLOW; URINE GLUCOSE (UA) NEGATIVE (NEGATIVE); URINE KETONE NEGATIVE (NEGATIVE); URINE LEUK ESTERASE 1+ (NEGATIVE); URINE NITRITE NEGATIVE (NEGATIVE); URINE PROTEIN NEGATIVE (NEGATIVE); URINE WBC 12 /uL (0-25.8)
[2021-06-20 04:34] VITALS: BMI 29.7
[2021-06-20] MEDS: INSULIN SLIDING SCALE (NOVOLOG) 1 VIAL SQ SCH ×4 (06:16→21:35)
[2021-06-20 09:06] LABS: HEMATOCRIT 44.3 % (32.4-45.2); HEMOGLOBIN 15.1 GM/dL (10.7-15.3); MCH 31.8 pg (25.7-33.7); MCHC 34.1 g/dl (32.0-36.0); MEAN CELL VOLUME 93.4 fl (80-96); MEAN PLT VOLUME 8.1 fl (7.5-11.1); PLATELET COUNT 265 10^3/uL (134-434); RBC 4.74 M/mm3 (3.60-5.2); WHITE BLOOD COUNT 8.9 K/mm3 (4.0-10.0)
[2021-06-20] MEDS: GABAPENTIN 100 MG CAPSULE PO SCH (09:35)
[2021-06-20] MEDS: LIDOCAINE 5% TOPICAL PATCH TP SCH (09:35)
[2021-06-20] MEDS: METHIMAZOLE 5 MG TABLET PO SCH (09:35)
[2021-06-20] MEDS: FOLIC ACID 1 MG TABLET (FP) PO SCH (09:35)
[2021-06-20] MEDS: LOSARTAN POTASSIUM 50 MG TABLET PO SCH (09:35)
[2021-06-20] MEDS: NIFEdipine E.R. 30 MG TABLET PO SCH (09:35)
[2021-06-20] MEDS: ASPIRIN 81 MG CHEWABLE TABLETS PO SCH (09:35)
[2021-06-20 09:36] LABS: BLOOD UREA NITROGEN 12.6 mg/dL (7-18); CALCIUM 9.2 mg/dL (8.5-10.1)
[2021-06-20] MEDS ORDERED: ACETAMINOPHEN 1000 MG/100 ML VIAL (NON FORMULARY) IVPB PRN (10:11)
[2021-06-20] MEDS ORDERED: INSULIN (NOVOLOG) ASPART 100 UNITS/ML 10ML VIAL ONE (11:48)
[2021-06-20] MEDS: oxyCODONE HCL 5 MG TABLET PO SCH ×2 (11:50→21:40)
[2021-06-20] MEDS: ATORVASTATIN CA 10 MG TABLET (FP) PO SCH (21:40)
[2021-06-20] MEDS: LIDOCAINE PATCH REMOVAL MC SCH (21:40)
[2021-06-20] MEDS ORDERED: PT OWN MED DRAWER 7, Y5N ONE (22:13)
[2021-06-21] MEDS: INSULIN SLIDING SCALE (NOVOLOG) 1 VIAL SQ SCH ×2 (07:44→11:59)
[2021-06-21 09:54] LABS: BASO % 0.5 % (0-2.0); EOS % 1.1 % (0-4.5); HEMATOCRIT 47.2 % (32.4-45.2); HEMOGLOBIN 16.1 GM/dL (10.7-15.3); LYMPH % 17.6 % (8-40); MCH 31.9 pg (25.7-33.7); MCHC 34.1 g/dl (32.0-36.0); MEAN CELL VOLUME 93.6 fl (80-96); MEAN PLT VOLUME 8.7 fl (7.5-11.1); MONO % 8.1 % (3.8-10.2); NEUT % 72.7 % (42.8-82.8); PLATELET COUNT 300 10^3/uL (134-434); RBC 5.04 M/mm3 (3.60-5.2); RDW 12.8 % (11.6-15.6); WHITE BLOOD COUNT 11.3 K/mm3 (4.0-10.0)
[2021-06-21] MEDS: oxyCODONE HCL 5 MG TABLET PO SCH ×2 (10:42→21:31)
[2021-06-21] MEDS: LOSARTAN POTASSIUM 50 MG TABLET PO SCH (10:42)
[2021-06-21] MEDS: LIDOCAINE 5% TOPICAL PATCH TP SCH (10:42)
[2021-06-21] MEDS: NIFEdipine E.R. 30 MG TABLET PO SCH (10:42)
[2021-06-21] MEDS: GABAPENTIN 100 MG CAPSULE PO SCH (10:43)
[2021-06-21] MEDS: ESCITALOPRAM OXALATE 10 MG TABLET PO SCH (10:43)
[2021-06-21] MEDS: METHIMAZOLE 5 MG TABLET PO SCH (10:44)
[2021-06-21] MEDS: ASPIRIN 81 MG CHEWABLE TABLETS PO SCH (10:44)
[2021-06-21] MEDS: FOLIC ACID 1 MG TABLET (FP) PO SCH (10:44)
[2021-06-21 11:02] LABS: CALCIUM 9.2 mg/dL (8.5-10.1)
[2021-06-21 11:09] LABS: BLOOD UREA NITROGEN 15.2 mg/dL (7-18)
[2021-06-21 11:10] LABS: ALBUMIN 3.8 g/dl (3.4-5.0); MAGNESIUM 2.2 mg/dL (1.8-2.4)
[2021-06-21 11:13] LABS: CREATININE 0.9 mg/dL (0.55-1.3); PHOSPHOROUS 2.9 mg/dL (2.5-4.9)
[2021-06-21 11:14] LABS: BILIRUBIN,TOTAL 0.6 mg/dL (0.2-1); TOT PROT 7.3 g/dl (6.4-8.2)
[2021-06-21] MEDS ORDERED: ACETAMINOPHEN 1000 MG/100 ML VIAL (NON FORMULARY) IVPB PRN (15:14)
[2021-06-21] MEDS: GABAPENTIN 300 MG CAPSULE PO SCH ×2 (17:03→21:31)
[2021-06-21] MEDS ORDERED: PT OWN MED DRAWER 7, Y5N ONE (20:55)
[2021-06-21] MEDS: ATORVASTATIN CA 10 MG TABLET (FP) PO SCH (21:31)
[2021-06-21] MEDS: NAPROXEN 375 MG TABLET PO SCH (21:31)
[2021-06-21] MEDS: LIDOCAINE PATCH REMOVAL MC SCH (21:34)
[2021-06-22] MEDS: GABAPENTIN 300 MG CAPSULE PO SCH ×3 (05:24→21:47)
[2021-06-22] MEDS: oxyCODONE HCL 5 MG TABLET PO SCH ×3 (07:49→21:46)
[2021-06-22] MEDS ORDERED: DOCUSATE NA 100 MG/10 ML UNIT-DOSE CUPS PO PRN (08:59)
[2021-06-22] MEDS: ASPIRIN 81 MG CHEWABLE TABLETS PO SCH (09:40)
[2021-06-22] MEDS: LIDOCAINE 5% TOPICAL PATCH TP SCH (09:40)
[2021-06-22] MEDS: POLYETHYLENE GLYCOL (HEALTHYLAX) 3350 17 GM PACKET PO SCH ×2 (09:40→21:47)
[2021-06-22] MEDS: NIFEdipine E.R. 30 MG TABLET PO SCH (09:40)
[2021-06-22] MEDS: LOSARTAN POTASSIUM 50 MG TABLET PO SCH (09:41)
[2021-06-22] MEDS: METHIMAZOLE 5 MG TABLET PO SCH (09:41)
[2021-06-22] MEDS: DOCUSATE NA 100 MG/10 ML UNIT-DOSE CUPS PO SCH (09:41)
[2021-06-22] MEDS: FOLIC ACID 1 MG TABLET (FP) PO SCH (09:41)
[2021-06-22] MEDS: ESCITALOPRAM OXALATE 10 MG TABLET PO SCH (09:41)
[2021-06-22] MEDS: SENNOSIDES 8.6MG TABLET (FP) PO SCH ×2 (09:41→21:47)
[2021-06-22] MEDS ORDERED: PT OWN MED DRAWER 7, Y5N ONE ×3 (09:43→21:43)
[2021-06-22] MEDS: NAPROXEN 375 MG TABLET PO SCH ×2 (09:43→22:11)
[2021-06-22] MEDS ORDERED: POLYETHYLENE GLYCOL (HEALTHYLAX) 3350 17 GM PACKET PO SCH (10:00)
[2021-06-22] MEDS: TAMSULOSIN HCL 0.4 MG CAP PO SCH (15:57)
[2021-06-22] MEDS: ATORVASTATIN CA 10 MG TABLET (FP) PO SCH (21:46)
[2021-06-22] MEDS: LIDOCAINE PATCH REMOVAL MC SCH (21:50)
[2021-06-22] MEDS ORDERED: ONDANSETRON 4 MG/2 ML VIAL IVPUSH ONE (23:02)
[2021-06-23] MEDS: GABAPENTIN 300 MG CAPSULE PO SCH ×3 (06:06→21:11)
[2021-06-23] MEDS ORDERED: SODIUM PHOSPHATE/NA BIPHOS 133 ML ENEMA RC ONE (07:04)
[2021-06-23 08:01] LABS: BASO % 0.4 % (0-2.0); EOS % 1.3 % (0-4.5); HEMATOCRIT 40.4 % (32.4-45.2); HEMOGLOBIN 13.6 GM/dL (10.7-15.3); LYMPH % 17.8 % (8-40); MCH 31.6 pg (25.7-33.7); MCHC 33.8 g/dl (32.0-36.0); MEAN CELL VOLUME 93.6 fl (80-96); MEAN PLT VOLUME 8.1 fl (7.5-11.1); MONO % 7.2 % (3.8-10.2); NEUT % 73.3 % (42.8-82.8); PLATELET COUNT 249 10^3/uL (134-434); RBC 4.31 M/mm3 (3.60-5.2); RDW 12.6 % (11.6-15.6); WHITE BLOOD COUNT 10.9 K/mm3 (4.0-10.0)
[2021-06-23 08:19] LABS: ALBUMIN 3.5 g/dl (3.4-5.0); CALCIUM 9.1 mg/dL (8.5-10.1); MAGNESIUM 2.4 mg/dL (1.8-2.4)
[2021-06-23 08:22] LABS: CREATININE 1.5 mg/dL (0.55-1.3)
[2021-06-23 08:23] LABS: PHOSPHOROUS 4.4 mg/dL (2.5-4.9)
[2021-06-23 08:24] LABS: BILIRUBIN,TOTAL 0.9 mg/dL (0.2-1); TOT PROT 6.3 g/dl (6.4-8.2)
[2021-06-23 08:37] LABS: BLOOD UREA NITROGEN 46.4 mg/dL (7-18)
[2021-06-23] MEDS ORDERED: PT OWN MED DRAWER 7, Y5N ONE (09:10)
[2021-06-23] MEDS: DOCUSATE NA 100 MG/10 ML UNIT-DOSE CUPS PO SCH (09:21)
[2021-06-23] MEDS: oxyCODONE HCL 5 MG TABLET PO SCH ×2 (09:22→21:12)
[2021-06-23] MEDS: ASPIRIN 81 MG CHEWABLE TABLETS PO SCH (09:22)
[2021-06-23] MEDS: SENNOSIDES 8.6MG TABLET (FP) PO SCH ×2 (09:22→21:11)
[2021-06-23] MEDS: METHIMAZOLE 5 MG TABLET PO SCH (09:22)
[2021-06-23] MEDS: NIFEdipine E.R. 30 MG TABLET PO SCH (09:22)
[2021-06-23] MEDS: TAMSULOSIN HCL 0.4 MG CAP PO SCH (09:22)
[2021-06-23] MEDS: FOLIC ACID 1 MG TABLET (FP) PO SCH (09:22)
[2021-06-23] MEDS: ESCITALOPRAM OXALATE 10 MG TABLET PO SCH (09:23)
[2021-06-23] MEDS: LOSARTAN POTASSIUM 50 MG TABLET PO SCH (09:23)
[2021-06-23] MEDS: LIDOCAINE 5% TOPICAL PATCH TP SCH (09:23)
[2021-06-23] MEDS: POLYETHYLENE GLYCOL (HEALTHYLAX) 3350 17 GM PACKET PO SCH ×2 (09:23→21:12)
[2021-06-23] MEDS: NAPROXEN 375 MG TABLET PO SCH (09:24)
[2021-06-23] MEDS ORDERED: SODIUM CHLORIDE 1,000 ML IV STA (10:03)
[2021-06-23 16:50] LABS: BLOOD UREA NITROGEN 46.4 mg/dL (7-18)
[2021-06-23 16:53] LABS: CREATININE 1.6 mg/dL (0.55-1.3)
[2021-06-23] MEDS ORDERED: PCA PUMP NR ONE (18:24)
[2021-06-23] MEDS: ATORVASTATIN CA 10 MG TABLET (FP) PO SCH (21:11)
[2021-06-23] MEDS: LIDOCAINE PATCH REMOVAL MC SCH (21:12)
[2021-06-23] MEDS ORDERED: ONDANSETRON 4 MG/2 ML VIAL IVPUSH ONE ×2 (22:31→22:49)
[2021-06-24] MEDS: GABAPENTIN 300 MG CAPSULE PO SCH ×2 (05:57→13:51)
[2021-06-24 09:11] LABS: BASO % 0.5 % (0-2.0); EOS % 2.2 % (0-4.5); HEMATOCRIT 42.1 % (32.4-45.2); HEMOGLOBIN 14.1 GM/dL (10.7-15.3); LYMPH % 26.3 % (8-40); MCH 31.8 pg (25.7-33.7); MCHC 33.4 g/dl (32.0-36.0); MEAN CELL VOLUME 95.1 fl (80-96); MEAN PLT VOLUME 8.8 fl (7.5-11.1); MONO % 7.6 % (3.8-10.2); NEUT % 63.4 % (42.8-82.8); PLATELET COUNT 276 10^3/uL (134-434); RBC 4.43 M/mm3 (3.60-5.2); RDW 12.8 % (11.6-15.6); WHITE BLOOD COUNT 9.2 K/mm3 (4.0-10.0)
[2021-06-24] MEDS: TAMSULOSIN HCL 0.4 MG CAP PO SCH (09:16)
[2021-06-24] MEDS: ASPIRIN 81 MG CHEWABLE TABLETS PO SCH (09:28)
[2021-06-24] MEDS: DOCUSATE NA 100 MG/10 ML UNIT-DOSE CUPS PO SCH (09:28)
[2021-06-24] MEDS: oxyCODONE HCL 5 MG TABLET PO SCH (09:28)
[2021-06-24] MEDS: SENNOSIDES 8.6MG TABLET (FP) PO SCH (09:29)
[2021-06-24] MEDS: POLYETHYLENE GLYCOL (HEALTHYLAX) 3350 17 GM PACKET PO SCH (09:29)
[2021-06-24] MEDS: LIDOCAINE 5% TOPICAL PATCH TP SCH (09:29)
[2021-06-24] MEDS: LOSARTAN POTASSIUM 50 MG TABLET PO SCH (09:29)
[2021-06-24] MEDS: FOLIC ACID 1 MG TABLET (FP) PO SCH (09:29)
[2021-06-24] MEDS: NIFEdipine E.R. 30 MG TABLET PO SCH (09:29)
[2021-06-24] MEDS: ESCITALOPRAM OXALATE 10 MG TABLET PO SCH (09:29)
[2021-06-24] MEDS: METHIMAZOLE 5 MG TABLET PO SCH (09:29)
[2021-06-24 09:43] LABS: ALBUMIN 3.4 g/dl (3.4-5.0); BLOOD UREA NITROGEN 26.2 mg/dL (7-18); CALCIUM 8.9 mg/dL (8.5-10.1)
[2021-06-24 09:44] LABS: MAGNESIUM 2.3 mg/dL (1.8-2.4)
[2021-06-24 09:46] LABS: CREATININE 0.9 mg/dL (0.55-1.3)
[2021-06-24 09:48] LABS: BILIRUBIN,TOTAL 0.4 mg/dL (0.2-1); TOT PROT 6.5 g/dl (6.4-8.2)
[2021-06-24 11:58] VITALS: BP 130/50; PULSE 70; TEMP 98.8
== END 2021-06-24 18:36 | DRG 552 ==
LOC: JER 19:41 → JERBED 22:55 → J8W 06-20 03:50
PROVIDERS: ADMIT Internal Medicine; ATTEND Internal Medicine
PROC: 0JQ03ZZ Repair Scalp Subcutaneous Tissue and Fascia, Percutaneous Approach (ICD-10-PCS; principal; 2021-06-19)
DX: M51.26 Other intervertebral disc displacement, lumbar region (principal); I10 Essential (primary) hypertension; E78.5 Hyperlipidemia, unspecified; M54.9 Dorsalgia, unspecified; J44.9 Chronic obstructive pulmonary disease, unspecified; S01.01XA Laceration without foreign body of scalp, initial encounter; E05.90 Thyrotoxicosis, unspecified without thyrotoxic crisis or storm; I71.4 Abdominal aortic aneurysm, without rupture; F32.A Depression, unspecified; K59.00 Constipation, unspecified; R33.9 Retention of urine, unspecified; R73.03 Prediabetes; R26.81 Unsteadiness on feet; W18.39XA Other fall on same level, initial encounter; Y92.090 Kitchen in other non-institutional residence as the place of occurrence of the external cause
CPT/HCPCS: 36415; 70450-TC; 71045-TC-FY; 72125-TC; 72131-TC; 80048; 80053; 81003; 82550; 82962; 83036; 83735; 84100; 84484; 85025; 85027; 87086; 93005; 93010; 97116-GP; 97161-GP; 99285-25; C9803; J0131; U0003; U0005

== ENCOUNTER 2022-10-05 11:07 | Emergency (ER) | payer OTHER, MEDICARE ==
[2022-10-05 11:21] VITALS: BMI 30.2
[2022-10-05 15:21] VITALS: BP 139/87; PULSE 73; RESP 20; TEMP 97.7
[2022-10-05] MEDS ORDERED: oxyCODONE HCL 5 MG TABLET PO PRN (17:30)
[2022-10-05] MEDS ORDERED: ACETAMINOPHEN 325 MG TABLET (FP) PO PRN (17:30)
[2022-10-05] MEDS ORDERED: ATORVASTATIN CA 10 MG TABLET (FP) PO SCH (22:00)
[2022-10-05] MEDS ORDERED: GABAPENTIN 300 MG CAPSULE PO SCH (22:00)
[2022-10-06] MEDS ORDERED: FOLIC ACID 1 MG TABLET (FP) PO SCH (10:00)
[2022-10-06] MEDS ORDERED: METHIMAZOLE 5 MG TABLET PO SCH (10:00)
[2022-10-06] MEDS ORDERED: ESCITALOPRAM OXALATE 10 MG TABLET PO SCH (10:00)
[2022-10-06] MEDS ORDERED: ASPIRIN 81 MG CHEWABLE TABLETS PO SCH (10:00)
[2022-10-06] MEDS ORDERED: NIFEdipine E.R. 30 MG TABLET PO SCH (10:00)
[2022-10-06] MEDS ORDERED: LOSARTAN POTASSIUM 50 MG TABLET PO SCH (10:00)
== END 2022-10-05 18:40 | disposition left against medical advice (07) ==
LOC: JER 11:07
DX: M25.552 Pain in left hip (principal)
CPT/HCPCS: 70450-TC; 72170-TC-FY; 72192-TC; 73502-TC-LT-FY; 99285-25

== ENCOUNTER 2022-10-11 15:21 | Observation (INO) | payer OTHER, MEDICARE ==
[2022-10-11 15:26] VITALS: BMI 30.2
[2022-10-11] MEDS ORDERED: ACETAMINOPHEN 1000 MG/100 ML BAG IVPB ONE (17:54)
[2022-10-11] MEDS ORDERED: morphine CARPU-JECT 2 MG/1 ML DISP.SYRIN IVPUSH ONE (17:54)
[2022-10-11] MEDS ORDERED: diazePAM 2 MG TABLET PO ONE (17:55)
[2022-10-11] MEDS ORDERED: ACETAMINOPHEN INJECTION 100 ML IVPB ONE (18:07)
[2022-10-11] MEDS ORDERED: diazePAM 2 MG TABLET ONE (18:07)
[2022-10-11 18:58] LABS: BASO % 0.5 % (0-2.0); EOS % 3.9 % (0-4.5); LYMPH % 22.3 % (8-40); MCH 29.1 pg (25.7-33.7); MCHC 32.6 g/dl (32.0-36.0); MEAN CELL VOLUME 89.4 fl (80-96); MEAN PLT VOLUME 8.6 fl (7.5-11.1); MONO % 8.6 % (3.8-10.2); NEUT % 64.7 % (42.8-82.8); PLATELET COUNT 335 10^3/uL (134-434); RBC 4.47 M/mm3 (3.60-5.2); RDW 14.8 % (11.6-15.6); WHITE BLOOD COUNT 8.8 K/mm3 (4.0-10.0)
[2022-10-11 19:16] LABS: ALBUMIN 3.7 g/dl (3.4-5.0); CALCIUM 9.1 mg/dL (8.5-10.1)
[2022-10-11 19:20] LABS: CREATININE 0.9 mg/dL (0.55-1.3)
[2022-10-11 19:22] LABS: BILIRUBIN,TOTAL 0.3 mg/dL (0.2-1); TOT PROT 6.7 g/dl (6.4-8.2)
[2022-10-11] MEDS ORDERED: DOCUSATE SODIUM 100 MG CAPSULE (FP) PO PRN (21:33)
[2022-10-11] MEDS: INSULIN SLIDING SCALE (NOVOLOG) 1 VIAL SQ SCH (22:22)
[2022-10-12] MEDS ORDERED: ACETAMINOPHEN 1000 MG/100 ML BAG IVPB ONE (01:24)
[2022-10-12] MEDS ORDERED: diazePAM 2 MG TABLET PO ONE (01:24)
[2022-10-12] MEDS: INSULIN SLIDING SCALE (NOVOLOG) 1 VIAL SQ SCH ×4 (06:25→21:35)
[2022-10-12 07:46] LABS: BASO % 0.6 % (0-2.0); EOS % 4.2 % (0-4.5); HEMATOCRIT 36.8 % (32.4-45.2); LYMPH % 25.4 % (8-40); MCHC 32.6 g/dl (32.0-36.0); MEAN CELL VOLUME 88.9 fl (80-96); MEAN PLT VOLUME 8.7 fl (7.5-11.1); MONO % 9.3 % (3.8-10.2); NEUT % 60.5 % (42.8-82.8); PLATELET COUNT 304 10^3/uL (134-434); RBC 4.13 M/mm3 (3.60-5.2); RDW 14.8 % (11.6-15.6); WHITE BLOOD COUNT 7.6 K/mm3 (4.0-10.0)
[2022-10-12 07:53] LABS: INR 1.01 (0.83-1.09); PROTHROMBIN TIME (PATIENT) 11.6 SEC (9.7-13.0)
[2022-10-12] MEDS ORDERED: morphine SULFATE 4 MG/ML VIAL IVPUSH PRN (08:00)
[2022-10-12] MEDS ORDERED: GABAPENTIN 300 MG CAPSULE PO SCH (08:00)
[2022-10-12 08:27] LABS: BLOOD UREA NITROGEN 13.8 mg/dL (7-18); CALCIUM 8.8 mg/dL (8.5-10.1); MAGNESIUM 2.2 mg/dL (1.8-2.4)
[2022-10-12] MEDS: ACETAMINOPHEN 1000 MG/100 ML BAG IVPB SCH ×3 (10:31→21:22)
[2022-10-12] MEDS: ESCITALOPRAM OXALATE 10 MG TABLET PO SCH (11:52)
[2022-10-12] MEDS: FOLIC ACID 1 MG TABLET (FP) PO SCH (11:52)
[2022-10-12] MEDS: metoPROLOL SUCCINATE 25 MG TAB.SR.24H (FP) PO SCH (11:54)
[2022-10-12] MEDS: METHIMAZOLE 5 MG TABLET PO SCH (11:54)
[2022-10-12] MEDS: methylPREDNISolone 4 MG TABLET PO SCH ×3 (13:20→21:31)
[2022-10-12] MEDS: GABAPENTIN 100 MG CAPSULE PO SCH ×2 (13:21→21:27)
[2022-10-12] MEDS: ATORVASTATIN CA 10 MG TABLET (FP) PO SCH (21:27)
[2022-10-13] MEDS: ACETAMINOPHEN 1000 MG/100 ML BAG IVPB SCH (03:02)
[2022-10-13] MEDS: GABAPENTIN 100 MG CAPSULE PO SCH ×3 (05:29→22:20)
[2022-10-13] MEDS: INSULIN SLIDING SCALE (NOVOLOG) 1 VIAL SQ SCH ×4 (06:00→22:20)
[2022-10-13] MEDS: FOLIC ACID 1 MG TABLET (FP) PO SCH (09:28)
[2022-10-13] MEDS: metoPROLOL SUCCINATE 25 MG TAB.SR.24H (FP) PO SCH (09:29)
[2022-10-13] MEDS: ESCITALOPRAM OXALATE 10 MG TABLET PO SCH (09:29)
[2022-10-13] MEDS: METHIMAZOLE 5 MG TABLET PO SCH (09:29)
[2022-10-13] MEDS ORDERED: methylPREDNISolone 8 MG TABLET PO ONE (10:31)
[2022-10-13] MEDS: methylPREDNISolone 4 MG TABLET PO SCH ×2 (14:27→17:44)
[2022-10-13] MEDS: POLYETHYLENE GLYCOL (HEALTHYLAX) 3350 17 GM PACKET PO SCH ×3 (14:27→22:23)
[2022-10-13] MEDS: ATORVASTATIN CA 10 MG TABLET (FP) PO SCH (22:20)
[2022-10-14] MEDS: INSULIN SLIDING SCALE (NOVOLOG) 1 VIAL SQ SCH ×4 (06:21→21:44)
[2022-10-14] MEDS: GABAPENTIN 100 MG CAPSULE PO SCH ×3 (06:21→21:43)
[2022-10-14] MEDS: FOLIC ACID 1 MG TABLET (FP) PO SCH (11:49)
[2022-10-14] MEDS: POLYETHYLENE GLYCOL (HEALTHYLAX) 3350 17 GM PACKET PO SCH ×2 (11:49→21:44)
[2022-10-14] MEDS: ESCITALOPRAM OXALATE 10 MG TABLET PO SCH (11:49)
[2022-10-14] MEDS: methylPREDNISolone 4 MG TABLET PO SCH ×4 (11:50→21:44)
[2022-10-14] MEDS: metoPROLOL SUCCINATE 25 MG TAB.SR.24H (FP) PO SCH (11:50)
[2022-10-14] MEDS: METHIMAZOLE 5 MG TABLET PO SCH (14:20)
[2022-10-14] MEDS: ATORVASTATIN CA 10 MG TABLET (FP) PO SCH (21:43)
[2022-10-15] MEDS: INSULIN SLIDING SCALE (NOVOLOG) 1 VIAL SQ SCH ×4 (06:14→23:17)
[2022-10-15] MEDS: GABAPENTIN 100 MG CAPSULE PO SCH ×3 (06:14→23:15)
[2022-10-15] MEDS: FOLIC ACID 1 MG TABLET (FP) PO SCH (09:19)
[2022-10-15] MEDS: ENOXAPARIN NA (PORCINE) 40 MG/0.4 ML DISP.SYRIN SQ SCH (09:19)
[2022-10-15] MEDS: POLYETHYLENE GLYCOL (HEALTHYLAX) 3350 17 GM PACKET PO SCH ×2 (09:19→23:17)
[2022-10-15] MEDS: ESCITALOPRAM OXALATE 10 MG TABLET PO SCH (09:19)
[2022-10-15] MEDS: metoPROLOL SUCCINATE 25 MG TAB.SR.24H (FP) PO SCH (09:20)
[2022-10-15] MEDS: METHIMAZOLE 5 MG TABLET PO SCH (09:20)
[2022-10-15 09:55] LABS: BASO % 0.3 % (0-2.0); EOS % 0.1 % (0-4.5); HEMATOCRIT 38.8 % (32.4-45.2); HEMOGLOBIN 12.4 GM/dL (10.7-15.3); LYMPH % 18.7 % (8-40); MCHC 32.1 g/dl (32.0-36.0); MEAN CELL VOLUME 90.4 fl (80-96); MONO % 5.6 % (3.8-10.2); NEUT % 75.3 % (42.8-82.8); PLATELET COUNT 421 10^3/uL (134-434); RBC 4.29 M/mm3 (3.60-5.2); RDW 14.9 % (11.6-15.6); WHITE BLOOD COUNT 12.1 K/mm3 (4.0-10.0)
[2022-10-15 10:25] LABS: BLOOD UREA NITROGEN 30.9 mg/dL (7-18); CALCIUM 9.1 mg/dL (8.5-10.1); MAGNESIUM 2.3 mg/dL (1.8-2.4)
[2022-10-15 10:28] LABS: PHOSPHOROUS 3.8 mg/dL (2.5-4.9)
[2022-10-15] MEDS: methylPREDNISolone 4 MG TABLET PO SCH ×3 (12:30→23:15)
[2022-10-15] MEDS ORDERED: INSULIN (NOVOLOG) ASPART 100 UNITS/ML 10ML VIAL ONE (12:53)
[2022-10-15] MEDS: ACETAMINOPHEN 1000 MG/100 ML BAG IVPB SCH ×2 (12:54→23:16)
[2022-10-15] MEDS: ATORVASTATIN CA 10 MG TABLET (FP) PO SCH (23:15)
[2022-10-16] MEDS: ACETAMINOPHEN 1000 MG/100 ML BAG IVPB SCH (06:15)
[2022-10-16] MEDS: GABAPENTIN 100 MG CAPSULE PO SCH ×3 (06:15→22:33)
[2022-10-16] MEDS: methylPREDNISolone 4 MG TABLET PO SCH ×3 (06:15→22:33)
[2022-10-16] MEDS: INSULIN SLIDING SCALE (NOVOLOG) 1 VIAL SQ SCH ×4 (06:16→22:36)
[2022-10-16 10:26] LABS: BASO % 0.3 % (0-2.0); EOS % 0.7 % (0-4.5); HEMATOCRIT 37.8 % (32.4-45.2); HEMOGLOBIN 12.6 GM/dL (10.7-15.3); LYMPH % 15.4 % (8-40); MCH 30.2 pg (25.7-33.7); MCHC 33.3 g/dl (32.0-36.0); MEAN CELL VOLUME 90.7 fl (80-96); MEAN PLT VOLUME 8.5 fl (7.5-11.1); MONO % 8.3 % (3.8-10.2); NEUT % 75.3 % (42.8-82.8); PLATELET COUNT 399 10^3/uL (134-434); RBC 4.17 M/mm3 (3.60-5.2); RDW 15.2 % (11.6-15.6); WHITE BLOOD COUNT 10.5 K/mm3 (4.0-10.0)
[2022-10-16] MEDS: ESCITALOPRAM OXALATE 10 MG TABLET PO SCH (10:33)
[2022-10-16] MEDS: ENOXAPARIN NA (PORCINE) 40 MG/0.4 ML DISP.SYRIN SQ SCH (10:33)
[2022-10-16] MEDS: metoPROLOL SUCCINATE 25 MG TAB.SR.24H (FP) PO SCH (10:33)
[2022-10-16] MEDS: FOLIC ACID 1 MG TABLET (FP) PO SCH (10:33)
[2022-10-16] MEDS: METHIMAZOLE 5 MG TABLET PO SCH (10:34)
[2022-10-16] MEDS: POLYETHYLENE GLYCOL (HEALTHYLAX) 3350 17 GM PACKET PO SCH ×2 (10:35→22:34)
[2022-10-16 10:52] LABS: CALCIUM 9.5 mg/dL (8.5-10.1)
[2022-10-16 10:53] LABS: BLOOD UREA NITROGEN 27.3 mg/dL (7-18)
[2022-10-16] MEDS: ATORVASTATIN CA 10 MG TABLET (FP) PO SCH (22:33)
[2022-10-16 23:09] VITALS: RESP 20
[2022-10-17] MEDS: GABAPENTIN 100 MG CAPSULE PO SCH ×2 (06:58→14:06)
[2022-10-17] MEDS: methylPREDNISolone 4 MG TABLET PO SCH ×2 (06:58→14:06)
[2022-10-17] MEDS: INSULIN SLIDING SCALE (NOVOLOG) 1 VIAL SQ SCH ×2 (06:58→12:03)
[2022-10-17] MEDS: FOLIC ACID 1 MG TABLET (FP) PO SCH (10:16)
[2022-10-17] MEDS: metoPROLOL SUCCINATE 25 MG TAB.SR.24H (FP) PO SCH (10:16)
[2022-10-17] MEDS: ESCITALOPRAM OXALATE 10 MG TABLET PO SCH (10:16)
[2022-10-17] MEDS: ENOXAPARIN NA (PORCINE) 40 MG/0.4 ML DISP.SYRIN SQ SCH (10:17)
[2022-10-17] MEDS: METHIMAZOLE 5 MG TABLET PO SCH (10:17)
[2022-10-17] MEDS: POLYETHYLENE GLYCOL (HEALTHYLAX) 3350 17 GM PACKET PO SCH (10:18)
[2022-10-17 15:01] VITALS: BP 111/98; PULSE 74; TEMP 98
== END 2022-10-17 16:10 | disposition home or self-care (01) ==
LOC: JER 15:21 → JERBED 20:47 → J7W 23:40
PROVIDERS: ADMIT Internal Medicine
PROC: 3E033NZ Introduction of Analgesics, Hypnotics, Sedatives into Peripheral Vein, Percutaneous Approach (ICD-10-PCS; principal; 2022-10-11)
PROC: 3E023GC Introduction of Other Therapeutic Substance into Muscle, Percutaneous Approach (ICD-10-PCS; 2022-10-11)
PROC: 3E033NZ Introduction of Analgesics, Hypnotics, Sedatives into Peripheral Vein, Percutaneous Approach (ICD-10-PCS; 2022-10-11)
DX: J44.9 Chronic obstructive pulmonary disease, unspecified (principal); E11.9 Type 2 diabetes mellitus without complications; I10 Essential (primary) hypertension; I71.40 Abdominal aortic aneurysm, without rupture, unspecified; G45.8 Other transient cerebral ischemic attacks and related syndromes; M51.86 Other intervertebral disc disorders, lumbar region; E03.9 Hypothyroidism, unspecified; F41.8 Other specified anxiety disorders; E66.8 Other obesity; Z68.30 Body mass index [BMI] 30.0-30.9, adult; M54.30 Sciatica, unspecified side; Z91.041 Radiographic dye allergy status
CPT/HCPCS: 36415; 72148-TC; 72170-TC-FY; 73502-TC-LT-FY; 80048; 80053; 82962; 83735; 84100; 84439; 84443; 84479; 85025; 85610; 85730; 93005; 93010; 96372; 96374; 96375; 96376; 97116-GP; 97161-GP; 99285-25; C9803-CS; G0378; U0003; U0005

== ENCOUNTER 2023-11-01 15:12 | Inpatient (IN) | payer MEDICARE, OTHER ==
[2023-11-01] MEDS ORDERED: methylPREDNISolone NA SUCC 125 MG/2 ML VIAL ONE (16:58)
[2023-11-01] MEDS ORDERED: ALBUTEROL SO4 2.5/IPRATROPIUM 0.5 INH SOL 3 ML VIAL.NEB. NEB ONE (16:59)
[2023-11-01 17:07] LABS: BASO % 0.6 % (0-2.0); EOS % 2.1 % (0-4.5); HEMATOCRIT 40.9 % (32.4-45.2); HEMOGLOBIN 13.4 GM/dL (10.7-15.3); LYMPH % 19.5 % (8-40); MCH 28.6 pg (25.7-33.7); MCHC 32.8 g/dl (32.0-36.0); MEAN CELL VOLUME 87.2 fl (80-96); MEAN PLT VOLUME 8.1 fl (7.5-11.1); MONO % 13.2 % (3.8-10.2); NEUT % 64.6 % (42.8-82.8); PLATELET COUNT 327 10^3/uL (134-434); RBC 4.69 M/mm3 (3.60-5.2); RDW 13.7 % (11.6-15.6); WHITE BLOOD COUNT 8.8 K/mm3 (4.0-10.0)
[2023-11-01 17:15] LABS: VENOUS BASE EXCESS -0.9 mmol/L (-2-2); VENOUS PCO2 49.7 mmHg (38-52); VENOUS PH 7.33 (7.310-7.410)
[2023-11-01 17:17] LABS: INR 1.05 (0.83-1.09); PROTHROMBIN TIME (PATIENT) 12.2 SEC (9.7-13.0)
[2023-11-01 17:18] LABS: POTASSIUM 4.1 mmol/L (3.5-5.1)
[2023-11-01 17:19] LABS: ACTIVATED PTT 26.9 SECONDS (25.2-36.5)
[2023-11-01] MEDS: methylPREDNISolone NA SUCC 125 MG/2 ML VIAL IVPUSH ONE (17:20)
[2023-11-01] MEDS: ALBUTEROL SO4 2.5/IPRATROPIUM 0.5 INH SOL 3 ML VIAL.NEB. NEB SCH (17:20)
[2023-11-01 17:21] LABS: ALBUMIN 3.9 g/dl (3.4-5.0); BLOOD UREA NITROGEN 11.1 mg/dL (7-18); MAGNESIUM 2.3 mg/dL (1.8-2.4)
[2023-11-01 17:24] LABS: CREATININE 1.2 mg/dL (0.55-1.3)
[2023-11-01 17:25] LABS: BILIRUBIN,TOTAL 0.4 mg/dL (0.2-1); TOT PROT 7.2 g/dl (6.4-8.2)
[2023-11-01] MEDS ORDERED: guaiFENesin/D-METHORPHAN HB 10 ML UNIT-DOSE CUPS ONE (19:05)
[2023-11-01] MEDS ORDERED: ACETAMINOPHEN 500 MG TABLET (FP) ONE (19:07)
[2023-11-01] MEDS: guaiFENesin/D-METHORPHAN HB 10 ML UNIT-DOSE CUPS PO ONE (19:12)
[2023-11-01] MEDS: ACETAMINOPHEN 500 MG TABLET (FP) PO ONE (19:12)
[2023-11-01] MEDS ORDERED: diphenhydrAMINE HCL 25 MG CAPSULE (FP) PO ONE (19:29)
[2023-11-01] MEDS: SODIUM CHLORIDE 0.9% 500 ML INFUS.BAG IV ONE (19:35)
[2023-11-01] MEDS: diphenhydrAMINE HCL 25 MG CAPSULE (FP) PO ONE (19:35)
[2023-11-01 21:40] LABS: PH,URINE 5.5 (5.0-8.0); URINE APPEARANCE CLOUDY; URINE BILIRUBIN NEGATIVE (NEGATIVE); URINE COLOR YELLOW; URINE GLUCOSE (UA) 2+ (NEGATIVE); URINE KETONE NEGATIVE (NEGATIVE); URINE LEUK ESTERASE NEGATIVE (NEGATIVE); URINE NITRITE NEGATIVE (NEGATIVE); URINE PROTEIN NEGATIVE (NEGATIVE); URINE UROBILINOGEN 0.2 mg/dL (0.2-1.0)
[2023-11-02] MEDS ORDERED: GABAPENTIN 100 MG CAPSULE ONE ×3 (00:17→16:03)
[2023-11-02] MEDS: GABAPENTIN 100 MG CAPSULE PO SCH (00:20)
[2023-11-02] MEDS ORDERED: ALBUTEROL SO4 2.5/IPRATROPIUM 0.5 INH SOL 3 ML VIAL.NEB. NEB PRN (02:28)
[2023-11-02] MEDS: methylPREDNISolone NA SUCC 40 MG/1 ML VIAL IVPUSH SCH ×2 (03:20→18:15)
[2023-11-02] MEDS ORDERED: methylPREDNISolone NA SUCC 40 MG/1 ML VIAL ONE (03:25)
[2023-11-02] MEDS ORDERED: INSULIN ASPART SLIDING SCALE (NOVOLOG) 1 VIAL SQ SCH (07:00)
[2023-11-02] MEDS ORDERED: ACETAMINOPHEN 325 MG TABLET (FP) PO PRN (07:45)
[2023-11-02 07:58] LABS: EOS % 0.1 % (0-4.5); HEMATOCRIT 39.2 % (32.4-45.2); HEMOGLOBIN 12.6 GM/dL (10.7-15.3); LYMPH % 6.9 % (8-40); MCH 28.7 pg (25.7-33.7); MCHC 32.2 g/dl (32.0-36.0); MEAN CELL VOLUME 89.2 fl (80-96); MEAN PLT VOLUME 8.2 fl (7.5-11.1); MONO % 2.8 % (3.8-10.2); NEUT % 90.2 % (42.8-82.8); PLATELET COUNT 302 10^3/uL (134-434); RDW 13.9 % (11.6-15.6); WHITE BLOOD COUNT 10.8 K/mm3 (4.0-10.0)
[2023-11-02 08:03] LABS: POTASSIUM 4.5 mmol/L (3.5-5.1)
[2023-11-02 08:07] LABS: ALBUMIN 3.5 g/dl (3.4-5.0); BLOOD UREA NITROGEN 14.7 mg/dL (7-18); CALCIUM 8.5 mg/dL (8.5-10.1); MAGNESIUM 2.2 mg/dL (1.8-2.4)
[2023-11-02 08:10] LABS: CREATININE 1.3 mg/dL (0.55-1.3); PHOSPHOROUS 2.8 mg/dL (2.5-4.9)
[2023-11-02 08:12] LABS: BILIRUBIN,TOTAL 0.3 mg/dL (0.2-1); TOT PROT 6.9 g/dl (6.4-8.2)
[2023-11-02] MEDS ORDERED: ALBUTEROL SO4 2.5/IPRATROPIUM 0.5 INH SOL 3 ML VIAL.NEB. NEB ONE ×2 (08:41→16:03)
[2023-11-02] MEDS ORDERED: INSULIN (NOVOLOG) ASPART 100 UNITS/ML 10ML VIAL ONE ×3 (09:13→17:58)
[2023-11-02] MEDS: metoPROLOL SUCCINATE 25 MG TAB.SR.24H (FP) PO SCH (09:15)
[2023-11-02] MEDS: ENOXAPARIN NA (PORCINE) 40 MG/0.4 ML DISP.SYRIN SQ SCH (09:15)
[2023-11-02] MEDS: METHIMAZOLE 5 MG TABLET PO SCH (09:15)
[2023-11-02] MEDS: ALBUTEROL SO4 2.5/IPRATROPIUM 0.5 INH SOL 3 ML VIAL.NEB. NEB SCH (09:15)
[2023-11-02] MEDS: INSULIN ASPART SLIDING SCALE (NOVOLOG) 1 VIAL SQ SCH (09:15)
[2023-11-02] MEDS: ESCITALOPRAM OXALATE 10 MG TABLET PO SCH (09:15)
[2023-11-02] MEDS: DOCUSATE NA 100 MG/10 ML UNIT-DOSE CUPS PO SCH (09:28)
[2023-11-02] MEDS ORDERED: LIDOCAINE 4% PATCH TP ONE (10:47)
[2023-11-02] MEDS: LIDOCAINE 4% PATCH TP SCH (10:57)
[2023-11-02] MEDS ORDERED: AZITHROMYCIN IVPB 500 MG/250 ML BAG IVPB ONE (16:03)
[2023-11-02] MEDS ORDERED: CEFTRIAXONE 1 GM/50 ML BAG ONE (16:03)
[2023-11-02] MEDS: CEFTRIAXONE 1 GM in DEXTROSE 5%-WATER - 50 ML IVPB SCH (16:21)
[2023-11-02] MEDS: AZITHROMYCIN IVPB 500 MG/250 ML BAG IVPB ONE (17:54)
[2023-11-02 21:11] VITALS: BMI 31.8
[2023-11-02] MEDS: ATORVASTATIN CA 10 MG TABLET (FP) PO SCH (21:37)
[2023-11-02] MEDS: LIDOCAINE PATCH REMOVAL MC SCH (21:37)
[2023-11-03] MEDS ORDERED: INSULIN (NOVOLOG) ASPART 100 UNITS/ML 10ML VIAL ONE (06:21)
[2023-11-03 08:13] LABS: BASO % 0.2 % (0-2.0); HEMATOCRIT 40.6 % (32.4-45.2); HEMOGLOBIN 12.9 GM/dL (10.7-15.3); LYMPH % 6.9 % (8-40); MCH 28.1 pg (25.7-33.7); MCHC 31.7 g/dl (32.0-36.0); MEAN CELL VOLUME 88.6 fl (80-96); MEAN PLT VOLUME 8.6 fl (7.5-11.1); MONO % 3.1 % (3.8-10.2); NEUT % 89.8 % (42.8-82.8); PLATELET COUNT 348 10^3/uL (134-434); RBC 4.59 M/mm3 (3.60-5.2); RDW 13.9 % (11.6-15.6); WHITE BLOOD COUNT 19.8 K/mm3 (4.0-10.0)
[2023-11-03 08:34] LABS: CALCIUM 9.1 mg/dL (8.5-10.1)
[2023-11-03 08:35] LABS: ALBUMIN 3.4 g/dl (3.4-5.0); BLOOD UREA NITROGEN 24.9 mg/dL (7-18)
[2023-11-03 08:38] LABS: CREATININE 1.4 mg/dL (0.55-1.3)
[2023-11-03 08:40] LABS: BILIRUBIN,TOTAL 0.3 mg/dL (0.2-1); TOT PROT 6.8 g/dl (6.4-8.2)
[2023-11-03] MEDS: ALBUTEROL SO4 2.5/IPRATROPIUM 0.5 INH SOL 3 ML VIAL.NEB. NEB SCH (20:22)
[2023-11-04 07:58] LABS: BASO % 0.1 % (0-2.0); HEMOGLOBIN 13.3 GM/dL (10.7-15.3); LYMPH % 7.7 % (8-40); MCH 28.7 pg (25.7-33.7); MCHC 32.5 g/dl (32.0-36.0); MEAN CELL VOLUME 88.5 fl (80-96); MEAN PLT VOLUME 8.6 fl (7.5-11.1); MONO % 3.8 % (3.8-10.2); NEUT % 88.4 % (42.8-82.8); PLATELET COUNT 314 10^3/uL (134-434); RBC 4.63 M/mm3 (3.60-5.2); RDW 13.9 % (11.6-15.6); WHITE BLOOD COUNT 14.6 K/mm3 (4.0-10.0)
[2023-11-04 08:18] LABS: POTASSIUM 4.7 mmol/L (3.5-5.1)
[2023-11-04 08:19] LABS: CALCIUM 9.1 mg/dL (8.5-10.1)
[2023-11-04 08:20] LABS: BLOOD UREA NITROGEN 30.8 mg/dL (7-18)
[2023-11-04 08:23] LABS: CREATININE 1.2 mg/dL (0.55-1.3)
[2023-11-04 09:00] VITALS: RESP 18
[2023-11-04] MEDS: predniSONE 20 MG TABLET (UD) PO SCH (09:42)
[2023-11-04 10:25] VITALS: BP 103/79; PULSE 104; TEMP 97.9
== END 2023-11-04 13:59 | disposition home or self-care (01) | DRG 190 ==
LOC: JER 15:12 → INTOOBSV 22:46 → JERBED 22:46 → OBSVTOIN 11-02 17:06 → J4W 11-02 19:53
PROVIDERS: ADMIT Internal Medicine; ATTEND Internal Medicine
DX: J44.0 Chronic obstructive pulmonary disease with (acute) lower respiratory infection (principal); J18.9 Pneumonia, unspecified organism; J20.9 Acute bronchitis, unspecified; J44.1 Chronic obstructive pulmonary disease with (acute) exacerbation; R29.6 Repeated falls; I10 Essential (primary) hypertension; E05.90 Thyrotoxicosis, unspecified without thyrotoxic crisis or storm; I71.40 Abdominal aortic aneurysm, without rupture, unspecified; I65.29 Occlusion and stenosis of unspecified carotid artery; R00.0 Tachycardia, unspecified; F41.8 Other specified anxiety disorders; I25.10 Atherosclerotic heart disease of native coronary artery without angina pectoris; D72.829 Elevated white blood cell count, unspecified; D64.9 Anemia, unspecified; G89.29 Other chronic pain; E11.42 Type 2 diabetes mellitus with diabetic polyneuropathy; Z85.038 Personal history of other malignant neoplasm of large intestine; Z99.3 Dependence on wheelchair
CPT/HCPCS: 0241U-QW; 36415; 70450-TC; 71045-TC-FY; 71275-TC; 76775-TC; 80048; 80053; 81003; 82803; 82962; 83735; 84100; 84443; 84484; 85025; 85610; 85730; 86850; 86900; 86901; 87086; 87899; 93005; 93010; 94640; 94761; 99285-25; G0378; Q9967

== ENCOUNTER 2023-12-08 18:41 | Emergency (ER) | payer OTHER ==
[2023-12-08 19:00] VITALS: RESP 18; TEMP 98.4; BMI 29.2
[2023-12-08] MEDS ORDERED: ACETAMINOPHEN 325 MG TABLET (FP) ONE (21:29)
[2023-12-08] MEDS: ACETAMINOPHEN 500 MG TABLET (FP) PO ONE (21:30)
[2023-12-08] MEDS ORDERED: IBUPROFEN 600 MG TABLET (FP) PO ONE (21:54)
[2023-12-08] MEDS ORDERED: METOPROLOL TARTRATE 50 MG TABLET (FP) ONE (21:55)
[2023-12-08] MEDS: IBUPROFEN 600 MG TABLET (FP) PO ONE (21:56)
[2023-12-08] MEDS: METOPROLOL TARTRATE 50 MG TABLET (FP) PO ONE (21:56)
[2023-12-09 02:02] VITALS: BP 168/76; PULSE 65
== END 2023-12-09 02:08 | disposition home or self-care (01) ==
LOC: JER 18:41
DX: R51.9 Headache, unspecified (principal); M54.9 Dorsalgia, unspecified; M48.02 Spinal stenosis, cervical region; W19.XXXA Unspecified fall, initial encounter; Y93.89 Activity, other specified; Y92.009 Unspecified place in unspecified non-institutional (private) residence as the place of occurrence of the external cause
CPT/HCPCS: 70450-TC; 71045-TC-FY; 72125-TC; 72170-TC-FY; 73502-TC-LT-FY; 99284-25

== ENCOUNTER 2024-02-15 21:25 | Inpatient (IN) | payer OTHER ==
[2024-02-15] MEDS ORDERED: ONDANSETRON 4 MG/2 ML VIAL ONE (21:43)
[2024-02-15 22:18] LABS: BASO % 0.6 % (0-2.0); EOS % 0.6 % (0-4.5); HEMATOCRIT 39.4 % (32.4-45.2); LYMPH % 9.3 % (8-40); MCHC 32.9 g/dl (32.0-36.0); MEAN CELL VOLUME 88.2 fl (80-96); MEAN PLT VOLUME 7.9 fl (7.5-11.1); MONO % 15.2 % (3.8-10.2); NEUT % 74.3 % (42.8-82.8); PLATELET COUNT 268 10^3/uL (134-434); RBC 4.47 M/mm3 (3.60-5.2); RDW 13.5 % (11.6-15.6); WHITE BLOOD COUNT 8.9 K/mm3 (4.0-10.0)
[2024-02-15 22:23] LABS: INR 1.1 (0.83-1.09); PROTHROMBIN TIME (PATIENT) 12.6 SEC (9.7-13.0)
[2024-02-15] MEDS ORDERED: ALBUTEROL SO4 2.5/IPRATROPIUM 0.5 INH SOL 3 ML VIAL.NEB. NEB ONE ×2 (22:29→23:18)
[2024-02-15] MEDS ORDERED: methylPREDNISolone NA SUCC 125 MG/2 ML VIAL ONE (22:29)
[2024-02-15] MEDS: ALBUTEROL SO4 2.5/IPRATROPIUM 0.5 INH SOL 3 ML VIAL.NEB. NEB ONE ×2 (22:34→23:18)
[2024-02-15] MEDS: methylPREDNISolone NA SUCC 125 MG/2 ML VIAL IVPUSH ONE (22:34)
[2024-02-15 23:10] LABS: POTASSIUM 3.9 mmol/L (3.5-5.1)
[2024-02-15 23:12] LABS: CALCIUM 8.9 mg/dL (8.5-10.1)
[2024-02-15 23:14] LABS: ALBUMIN 3.7 g/dl (3.4-5.0); BLOOD UREA NITROGEN 8.2 mg/dL (7-18)
[2024-02-15 23:18] LABS: BILIRUBIN,TOTAL 0.5 mg/dL (0.2-1); TOT PROT 6.7 g/dl (6.4-8.2)
[2024-02-16] MEDS: REMDESIVIR 200 MG in SODIUM CHLORIDE 250 ML IVPB ONE (00:13)
[2024-02-16] MEDS ORDERED: ACETAMINOPHEN INJECTION 100 ML IVPB ONE (00:14)
[2024-02-16] MEDS: ACETAMINOPHEN 1000 MG/100 ML BAG IVPB ONE (00:16)
[2024-02-16] MEDS: REMDESIVIR 100 MG in SODIUM CHLORIDE 270 ML IVPB ONE (05:19)
[2024-02-16] MEDS: INSULIN ASPART SLIDING SCALE (NOVOLOG) 1 VIAL SQ SCH (06:05)
[2024-02-16 06:51] LABS: HEMATOCRIT 40.6 % (32.4-45.2); HEMOGLOBIN 13.3 GM/dL (10.7-15.3); MCH 29.2 pg (25.7-33.7); MCHC 32.8 g/dl (32.0-36.0); MEAN CELL VOLUME 89.1 fl (80-96); MEAN PLT VOLUME 8.4 fl (7.5-11.1); PLATELET COUNT 268 10^3/uL (134-434); RBC 4.55 M/mm3 (3.60-5.2); WHITE BLOOD COUNT 8.7 K/mm3 (4.0-10.0)
[2024-02-16 07:04] LABS: CHLORIDE 105 mmol/L (98-107); POTASSIUM 3.9 mmol/L (3.5-5.1); SODIUM 137 mmol/L (136-145)
[2024-02-16 07:07] LABS: ALBUMIN 3.4 g/dl (3.4-5.0); ANION GAP 9 mmol/L (4-13); CALCIUM 8.8 mg/dL (8.5-10.1); CO2 24 mmol/L (21-32)
[2024-02-16 07:10] LABS: CREATININE 1.4 mg/dL (0.55-1.3); PHOSPHOROUS 3.1 mg/dL (2.5-4.9); SGOT/AST 13 U/L (15-37); SGPT/ALT 22 U/L (13-61)
[2024-02-16 07:13] LABS: ALK PHOS 86 U/L (45-117); BILIRUBIN,TOTAL 0.3 mg/dL (0.2-1); TOT PROT 6.5 g/dl (6.4-8.2)
[2024-02-16 07:37] LABS: GLUCOSE,RANDOM 403 mg/dL (74-106)
[2024-02-16 09:36] LABS: ANISOCYTOSIS 0; MACROCYTOSIS 0
[2024-02-16 09:37] LABS: PLATELET ESTIMATE ADEQUATE
[2024-02-16] MEDS: ENOXAPARIN NA (PORCINE) 40 MG/0.4 ML DISP.SYRIN SQ SCH (10:24)
[2024-02-17] MEDS: REMDESIVIR 100 MG in SODIUM CHLORIDE 270 ML IVPB ONE (04:10)
[2024-02-17 08:08] LABS: POTASSIUM 4.6 mmol/L (3.5-5.1)
[2024-02-17 08:17] LABS: CALCIUM 8.9 mg/dL (8.5-10.1)
[2024-02-17 08:18] LABS: ALBUMIN 3.2 g/dl (3.4-5.0); MAGNESIUM 2.3 mg/dL (1.8-2.4)
[2024-02-17 08:21] LABS: CREATININE 1.1 mg/dL (0.55-1.3); PHOSPHOROUS 3.1 mg/dL (2.5-4.9)
[2024-02-17 08:22] LABS: BILIRUBIN,TOTAL 0.3 mg/dL (0.2-1); TOT PROT 6.2 g/dl (6.4-8.2)
[2024-02-17] MEDS: METHIMAZOLE 5 MG TABLET PO SCH (09:54)
[2024-02-17] MEDS: ESCITALOPRAM OXALATE 20 MG TABLET PO SCH (09:54)
[2024-02-17] MEDS: metoPROLOL SUCCINATE 25 MG TAB.SR.24H (FP) PO SCH (09:54)
[2024-02-17] MEDS ORDERED: DEXAMETHASONE SOD PHOSPHATE 10 MG/1 ML VIAL IVPUSH SCH (10:00)
[2024-02-17] MEDS: methylPREDNISolone NA SUCC 40 MG/1 ML VIAL IVPUSH SCH (11:41)
[2024-02-17] MEDS: ALBUTEROL SO4 2.5/IPRATROPIUM 0.5 INH SOL 3 ML VIAL.NEB. NEB SCH (11:54)
[2024-02-17] MEDS: BUDESONIDE/FORMETEROL FUMARATE 160/4.5 mcg INHALER IH SCH (12:53)
[2024-02-17] MEDS: FOLIC ACID 1 MG TABLET (FP) PO SCH (13:27)
[2024-02-17] MEDS: PANTOPRAZOLE 40 MG TABLET PO SCH (13:27)
[2024-02-17] MEDS: GABAPENTIN 100 MG CAPSULE PO SCH (13:27)
[2024-02-17] MEDS: ATORVASTATIN CA 10 MG TABLET (FP) PO SCH (21:12)
[2024-02-18 08:14] LABS: HEMOGLOBIN 12.9 GM/dL (10.7-15.3); MCH 29.7 pg (25.7-33.7); MCHC 33.8 g/dl (32.0-36.0); MEAN CELL VOLUME 87.9 fl (80-96); MEAN PLT VOLUME 8.4 fl (7.5-11.1); PLATELET COUNT 283 10^3/uL (134-434); RBC 4.32 M/mm3 (3.60-5.2); RDW 14.3 % (11.6-15.6); WHITE BLOOD COUNT 9.5 K/mm3 (4.0-10.0)
[2024-02-18 08:38] LABS: POTASSIUM 4.1 mmol/L (3.5-5.1)
[2024-02-18 08:48] LABS: BLOOD UREA NITROGEN 22.6 mg/dL (7-18); CALCIUM 8.4 mg/dL (8.5-10.1); MAGNESIUM 2.3 mg/dL (1.8-2.4)
[2024-02-18 08:51] LABS: PHOSPHOROUS 3.5 mg/dL (2.5-4.9)
[2024-02-18] MEDS: REMDESIVIR 100 MG in SODIUM CHLORIDE 250 ML IVPB SCH (10:13)
[2024-02-18 20:49] VITALS: BMI 32.1
[2024-02-19 06:47] VITALS: TEMP 97.9
[2024-02-19 08:25] LABS: HEMATOCRIT 39.7 % (32.4-45.2); HEMOGLOBIN 13.5 GM/dL (10.7-15.3); MCH 29.7 pg (25.7-33.7); MEAN CELL VOLUME 87.3 fl (80-96); MEAN PLT VOLUME 8.5 fl (7.5-11.1); PLATELET COUNT 286 10^3/uL (134-434); RBC 4.55 M/mm3 (3.60-5.2); RDW 13.9 % (11.6-15.6); WHITE BLOOD COUNT 8.4 K/mm3 (4.0-10.0)
[2024-02-19 08:34] LABS: POTASSIUM 3.8 mmol/L (3.5-5.1)
[2024-02-19 08:36] LABS: CALCIUM 8.6 mg/dL (8.5-10.1)
[2024-02-19 08:37] LABS: BLOOD UREA NITROGEN 23.8 mg/dL (7-18); MAGNESIUM 2.2 mg/dL (1.8-2.4)
[2024-02-19 08:40] LABS: CREATININE 0.9 mg/dL (0.55-1.3); PHOSPHOROUS 3.5 mg/dL (2.5-4.9)
[2024-02-19 08:42] LABS: BILIRUBIN,TOTAL 0.4 mg/dL (0.2-1)
[2024-02-19] MEDS: POLYETHYLENE GLYCOL (HEALTHYLAX) 3350 17 GM PACKET PO SCH (09:38)
[2024-02-19 14:02] VITALS: BP 150/81; PULSE 69; RESP 16
== END 2024-02-19 11:09 | disposition home or self-care (01) | DRG 178 ==
LOC: JER 21:25 → JERBED 02-16 01:19 → J4W 02-16 05:47
PROVIDERS: ADMIT Internal Medicine; ATTEND Internal Medicine
PROC: XW033E5 Introduction of Remdesivir Anti-infective into Peripheral Vein, Percutaneous Approach, New Technology Group 5 (ICD-10-PCS; principal; 2024-02-15)
DX: U07.1 COVID-19 (principal); I24.89 Other forms of acute ischemic heart disease; I47.10 Supraventricular tachycardia, unspecified; J44.1 Chronic obstructive pulmonary disease with (acute) exacerbation; I10 Essential (primary) hypertension; E78.5 Hyperlipidemia, unspecified; I71.43 Infrarenal abdominal aortic aneurysm, without rupture; M48.061 Spinal stenosis, lumbar region without neurogenic claudication; E05.90 Thyrotoxicosis, unspecified without thyrotoxic crisis or storm; F41.8 Other specified anxiety disorders; M54.16 Radiculopathy, lumbar region; E04.2 Nontoxic multinodular goiter; I25.10 Atherosclerotic heart disease of native coronary artery without angina pectoris; G62.9 Polyneuropathy, unspecified; E11.65 Type 2 diabetes mellitus with hyperglycemia
CPT/HCPCS: 0241U-QW; 36415; 71045-TC-FY; 71275-TC; 74174-TC; 80048; 80053; 82962; 83036; 83735; 84100; 84439; 84443; 84481; 84484; 85025; 85027; 85610; 86850; 86900; 86901; 93005; 93010; 94640; 97116-GP; 97162-GP; 99285-25; J0131; J0248; Q9967

== ENCOUNTER 2024-02-23 10:07 | Observation (INO) | payer OTHER ==
[2024-02-23 11:47] LABS: BASO % 0.3 % (0-2.0); EOS % 0.5 % (0-4.5); HEMATOCRIT 40.9 % (32.4-45.2); HEMOGLOBIN 13.4 GM/dL (10.7-15.3); LYMPH % 22.2 % (8-40); MCH 28.6 pg (25.7-33.7); MCHC 32.7 g/dl (32.0-36.0); MEAN CELL VOLUME 87.3 fl (80-96); MEAN PLT VOLUME 8.2 fl (7.5-11.1); MONO % 10.2 % (3.8-10.2); NEUT % 66.8 % (42.8-82.8); PLATELET COUNT 315 10^3/uL (134-434); RBC 4.69 M/mm3 (3.60-5.2); RDW 13.7 % (11.6-15.6); WHITE BLOOD COUNT 11.9 K/mm3 (4.0-10.0)
[2024-02-23] MEDS: SODIUM CHLORIDE 0.9% 500 ML INFUS.BAG IV ONE (11:48)
[2024-02-23 11:55] LABS: INR 0.89 (0.83-1.09); PROTHROMBIN TIME (PATIENT) 10.3 SEC (9.7-13.0)
[2024-02-23 11:58] LABS: ACTIVATED PTT 22.9 SECONDS (25.2-36.5)
[2024-02-23 12:00] LABS: ALBUMIN 3.3 g/dl (3.4-5.0); BLOOD UREA NITROGEN 21.4 mg/dL (7-18); CALCIUM 9.6 mg/dL (8.5-10.1); MAGNESIUM 2.3 mg/dL (1.8-2.4)
[2024-02-23 12:03] LABS: CREATININE 1.2 mg/dL (0.55-1.3); PHOSPHOROUS 3.6 mg/dL (2.5-4.9)
[2024-02-23 12:05] LABS: BILIRUBIN,TOTAL 0.4 mg/dL (0.2-1); TOT PROT 6.2 g/dl (6.4-8.2)
[2024-02-23] MEDS: REMDESIVIR 200 MG in SODIUM CHLORIDE 250 ML IVPB ONE (19:48)
[2024-02-23 22:08] LABS: EPI CELLS 23 /uL (0-25.1); HYALINE CASTS 3 /uL (0-3.1); PH,URINE 5.5 (5.0-8.0); URINE APPEARANCE TURBID; URINE BACTERIA 7270 /uL (0-1359); URINE BILIRUBIN NEGATIVE (NEGATIVE); URINE COLOR YELLOW; URINE GLUCOSE (UA) NEGATIVE (NEGATIVE); URINE KETONE NEGATIVE (NEGATIVE); URINE LEUK ESTERASE 3+ (NEGATIVE); URINE NITRITE NEGATIVE (NEGATIVE); URINE PROTEIN NEGATIVE (NEGATIVE); URINE RBC 10 /uL (0-23.9); URINE UROBILINOGEN 0.2 mg/dL (0.2-1.0); URINE WBC 90 /uL (0-25.8)
[2024-02-23 22:31] LABS: URINE CRYSTALS FEW /hpf; YEAST FEW (NEGATIVE)
[2024-02-23 22:51] VITALS: BMI 30.4
[2024-02-24] MEDS: CEFTRIAXONE 1 GM in DEXTROSE 5%-WATER - 50 ML IVPB ONE (02:23)
[2024-02-24] MEDS: MELATONIN 5 MG TABLETS PO ONE (02:35)
[2024-02-24] MEDS: GABAPENTIN 100 MG CAPSULE PO SCH (05:39)
[2024-02-24] MEDS: ALBUTEROL SO4 2.5/IPRATROPIUM 0.5 INH SOL 3 ML VIAL.NEB. NEB SCH (08:00)
[2024-02-24 08:09] LABS: POTASSIUM 4.1 mmol/L (3.5-5.1)
[2024-02-24 08:11] LABS: CALCIUM 8.4 mg/dL (8.5-10.1)
[2024-02-24 08:12] LABS: ALBUMIN 2.8 g/dl (3.4-5.0); BLOOD UREA NITROGEN 18.2 mg/dL (7-18); MAGNESIUM 2.2 mg/dL (1.8-2.4)
[2024-02-24 08:15] LABS: CREATININE 1.1 mg/dL (0.55-1.3); PHOSPHOROUS 3.6 mg/dL (2.5-4.9)
[2024-02-24 08:17] LABS: BILIRUBIN,TOTAL 0.3 mg/dL (0.2-1); TOT PROT 5.5 g/dl (6.4-8.2)
[2024-02-24 08:27] LABS: BASO % 0.4 % (0-2.0); EOS % 1.3 % (0-4.5); HEMATOCRIT 38.8 % (32.4-45.2); HEMOGLOBIN 13.1 GM/dL (10.7-15.3); LYMPH % 28.9 % (8-40); MCH 29.5 pg (25.7-33.7); MCHC 33.8 g/dl (32.0-36.0); MEAN CELL VOLUME 87.5 fl (80-96); MEAN PLT VOLUME 8.5 fl (7.5-11.1); MONO % 10.5 % (3.8-10.2); NEUT % 58.9 % (42.8-82.8); PLATELET COUNT 256 10^3/uL (134-434); RBC 4.43 M/mm3 (3.60-5.2); WHITE BLOOD COUNT 9.4 K/mm3 (4.0-10.0)
[2024-02-24] MEDS: LACTATED RINGERS SOLUTION 1,000 ML/1,000 ML INFUS.BAG IV SCH (10:09)
[2024-02-24] MEDS: metoPROLOL SUCCINATE 25 MG TAB.SR.24H (FP) PO SCH (10:10)
[2024-02-24] MEDS: ENOXAPARIN NA (PORCINE) 40 MG/0.4 ML DISP.SYRIN SQ SCH (10:10)
[2024-02-24] MEDS: PANTOPRAZOLE 40 MG TABLET PO SCH (10:10)
[2024-02-24] MEDS: ESCITALOPRAM OXALATE 20 MG TABLET PO SCH (10:10)
[2024-02-24] MEDS: FOLIC ACID 1 MG TABLET (FP) PO SCH (10:10)
[2024-02-24] MEDS: BUDESONIDE/FORMETEROL FUMARATE 160/4.5 mcg INHALER IH SCH (13:33)
[2024-02-24] MEDS: METHIMAZOLE 5 MG TABLET PO SCH (13:33)
[2024-02-24] MEDS: SODIUM CHLORIDE 1,000 ML IV STA (17:29)
[2024-02-24] MEDS: ATORVASTATIN CA 10 MG TABLET (FP) PO SCH (21:56)
[2024-02-25] MEDS: oxyCODONE HCL 5 MG TABLET PO PRN (18:05)
[2024-02-25] MEDS: INSULIN ASPART SLIDING SCALE (NOVOLOG) 1 VIAL SQ SCH (18:46)
[2024-02-26 07:34] LABS: POTASSIUM 3.8 mmol/L (3.5-5.1)
[2024-02-26 07:40] LABS: CALCIUM 8.3 mg/dL (8.5-10.1)
[2024-02-26 07:41] LABS: ALBUMIN 2.8 g/dl (3.4-5.0); BLOOD UREA NITROGEN 12.3 mg/dL (7-18)
[2024-02-26 07:44] LABS: CREATININE 1.2 mg/dL (0.55-1.3)
[2024-02-26 07:45] LABS: BILIRUBIN,TOTAL 0.6 mg/dL (0.2-1); TOT PROT 5.2 g/dl (6.4-8.2)
[2024-02-26] MEDS: BENZONATATE 100 MG CAPSULE PO PRN (10:32)
[2024-02-26 19:00] VITALS: BP 104/67; PULSE 78; RESP 17; TEMP 98.8
== END 2024-02-26 18:45 | disposition home or self-care (01) ==
LOC: JER 10:07 → JERBED 18:16 → UNDOADMOB 18:16 → OBSVTOIN 21:01 → INTOOBSV 21:01 → JERBED 02-24 00:18 → J4S 02-24 00:18 → JERBED 02-24 11:45
PROVIDERS: ADMIT Internal Medicine; ATTEND Internal Medicine
PROC: 3E03329 Introduction of Other Anti-infective into Peripheral Vein, Percutaneous Approach (ICD-10-PCS; principal; 2024-02-24)
PROC: 3E023GC Introduction of Other Therapeutic Substance into Muscle, Percutaneous Approach (ICD-10-PCS; 2024-02-24)
PROC: 3E0337Z Introduction of Electrolytic and Water Balance Substance into Peripheral Vein, Percutaneous Approach (ICD-10-PCS; 2024-02-24)
DX: U07.1 COVID-19 (principal); R55 Syncope and collapse; J44.9 Chronic obstructive pulmonary disease, unspecified; E11.9 Type 2 diabetes mellitus without complications; I71.40 Abdominal aortic aneurysm, without rupture, unspecified; E05.90 Thyrotoxicosis, unspecified without thyrotoxic crisis or storm; W18.39XA Other fall on same level, initial encounter; Y93.89 Activity, other specified; Y92.002 Bathroom of unspecified non-institutional (private) residence as the place of occurrence of the external cause; Z91.040 Latex allergy status
CPT/HCPCS: 0241U-QW; 36415; 70450-TC; 71045-TC-FY; 74176-TC; 80053; 81003; 82962; 83735; 84100; 84439; 84443; 84484; 85025; 85610; 85730; 86850; 86900; 86901; 87077; 87086; 93005; 93010; 93306-TC; 94640; 96361; 96365; 96367; 96372; 97116-GP; 97161-GP; 99285-25; G0378; J0248

== ENCOUNTER 2024-02-29 12:27 | Observation (INO) | payer OTHER ==
[2024-02-29 12:45] VITALS: BMI 29.4
[2024-02-29] MEDS ORDERED: FAMOTIDINE 20 MG/50 ML IVPB 20 MG/50 ML MG IVPB ONE (13:26)
[2024-02-29] MEDS ORDERED: ONDANSETRON 4 MG/2 ML VIAL ONE (13:26)
[2024-02-29] MEDS ORDERED: ACETAMINOPHEN INJECTION 100 ML IVPB ONE (13:26)
[2024-02-29] MEDS: ACETAMINOPHEN 1000 MG/100 ML BAG IVPB ONE (13:56)
[2024-02-29] MEDS: ONDANSETRON 4 MG/2 ML VIAL IVPUSH ONE (13:56)
[2024-02-29] MEDS: FAMOTIDINE 20 MG/50 ML IVPB 20 MG/50 ML MG IVPB ONE (13:56)
[2024-02-29 14:04] LABS: BASO % 0.4 % (0-2.0); EOS % 0.9 % (0-4.5); HEMATOCRIT 37.7 % (32.4-45.2); HEMOGLOBIN 12.1 GM/dL (10.7-15.3); LYMPH % 15.4 % (8-40); MCH 28.7 pg (25.7-33.7); MCHC 32.1 g/dl (32.0-36.0); MEAN CELL VOLUME 89.5 fl (80-96); MEAN PLT VOLUME 9.2 fl (7.5-11.1); MONO % 12.4 % (3.8-10.2); NEUT % 70.9 % (42.8-82.8); PLATELET COUNT 262 10^3/uL (134-434); RBC 4.22 M/mm3 (3.60-5.2); RDW 14.1 % (11.6-15.6); WHITE BLOOD COUNT 12.7 K/mm3 (4.0-10.0)
[2024-02-29 14:09] LABS: VENOUS O2 SATURATION 69.1 % (70-80); VENOUS PCO2 46.5 mmHg (38-52); VENOUS PH 7.376 (7.310-7.410)
[2024-02-29 14:10] LABS: INR 0.93 (0.83-1.09); PROTHROMBIN TIME (PATIENT) 10.7 SEC (9.7-13.0)
[2024-02-29 14:13] LABS: ACTIVATED PTT 28.9 SECONDS (25.2-36.5)
[2024-02-29 14:25] LABS: POTASSIUM 4.3 mmol/L (3.5-5.1)
[2024-02-29] MEDS ORDERED: methylPREDNISolone NA SUCC 125 MG/2 ML VIAL ONE (14:26)
[2024-02-29] MEDS ORDERED: diphenhydrAMINE HCL 25 MG CAPSULE (FP) PO ONE (14:26)
[2024-02-29 14:27] LABS: CALCIUM 9.4 mg/dL (8.5-10.1)
[2024-02-29 14:31] LABS: CREATININE 1.1 mg/dL (0.55-1.3)
[2024-02-29 14:32] LABS: BILIRUBIN,TOTAL 0.4 mg/dL (0.2-1)
[2024-02-29] MEDS: LACTATED RINGERS SOLUTION 1000 ML INFUS.BAG IV ONE (14:35)
[2024-02-29] MEDS: diphenhydrAMINE HCL 50 MG CAPSULE PO ONE (14:36)
[2024-02-29] MEDS: methylPREDNISolone NA SUCC 125 MG/2 ML VIAL IVPUSH ONE (14:36)
[2024-02-29 14:46] LABS: LACTIC ACID 2.6 mmol/L (0.4-2.0)
[2024-02-29 20:20] LABS: LACTIC ACID 2.4 mmol/L (0.4-2.0)
[2024-03-01] MEDS: GABAPENTIN 100 MG CAPSULE PO SCH (06:02)
[2024-03-01] MEDS: LACTATED RINGERS SOLUTION 1,000 ML/1,000 ML INFUS.BAG IV SCH ×3 (06:03→14:59)
[2024-03-01] MEDS: INSULIN ASPART SLIDING SCALE (NOVOLOG) 1 VIAL SQ SCH (06:18)
[2024-03-01 09:23] LABS: HEMATOCRIT 38.2 % (32.4-45.2); HEMOGLOBIN 12.6 GM/dL (10.7-15.3); MCH 29.2 pg (25.7-33.7); MCHC 32.9 g/dl (32.0-36.0); MEAN CELL VOLUME 88.7 fl (80-96); MEAN PLT VOLUME 9.3 fl (7.5-11.1); PLATELET COUNT 286 10^3/uL (134-434); RBC 4.31 M/mm3 (3.60-5.2); WHITE BLOOD COUNT 11.5 K/mm3 (4.0-10.0)
[2024-03-01 09:24] LABS: POTASSIUM 5.1 mmol/L (3.5-5.1)
[2024-03-01 09:30] LABS: CALCIUM 9.4 mg/dL (8.5-10.1)
[2024-03-01 09:31] LABS: ALBUMIN 2.9 g/dl (3.4-5.0); BLOOD UREA NITROGEN 20.4 mg/dL (7-18); MAGNESIUM 2.3 mg/dL (1.8-2.4)
[2024-03-01 09:33] LABS: PHOSPHOROUS 4.2 mg/dL (2.5-4.9)
[2024-03-01 09:34] LABS: CREATININE 1.3 mg/dL (0.55-1.3)
[2024-03-01 09:35] LABS: BILIRUBIN,TOTAL 0.4 mg/dL (0.2-1); TOT PROT 6.4 g/dl (6.4-8.2)
[2024-03-01 09:42] LABS: LACTIC ACID 3.8 mmol/L (0.4-2.0)
[2024-03-01] MEDS: METHIMAZOLE 5 MG TABLET PO SCH (10:44)
[2024-03-01] MEDS: PANTOPRAZOLE SODIUM 40 MG VIAL IVPUSH SCH (10:44)
[2024-03-01] MEDS: ENOXAPARIN NA (PORCINE) 40 MG/0.4 ML DISP.SYRIN SQ SCH (10:44)
[2024-03-01] MEDS: metoPROLOL SUCCINATE 25 MG TAB.SR.24H (FP) PO SCH (10:46)
[2024-03-01] MEDS: SODIUM CHLORIDE 0.9% 500 ML INFUS.BAG IV ONE (10:53)
[2024-03-01] MEDS: ONDANSETRON 4 MG/2 ML VIAL IVPUSH PRN (10:53)
[2024-03-01 10:57] LABS: LACTIC ACID 3.3 mmol/L (0.4-2.0)
[2024-03-01 13:20] LABS: LACTIC ACID 2.7 mmol/L (0.4-2.0)
[2024-03-01 14:37] LABS: URINE APPEARANCE CLOUDY; URINE COLOR YELLOW; URINE GLUCOSE (UA) 500 mg/dl (NEGATIVE)
[2024-03-01 14:38] LABS: EPI CELLS 15.7 /uL (0-25.1); HYALINE CASTS 0.43 /uL (0-3.1); URINE BACTERIA 1254.5 /uL (0-1359); URINE BILIRUBIN NEGATIVE (NEGATIVE); URINE KETONE NEGATIVE (NEGATIVE); URINE LEUK ESTERASE NEGATIVE (NEGATIVE); URINE NITRITE POSITIVE (NEGATIVE); URINE PROTEIN NEGATIVE (NEGATIVE); URINE RBC 168.5 /uL (0-23.9); URINE WBC 26.1 /uL (0-25.8)
[2024-03-01 14:39] LABS: YEAST NEGATIVE (NEGATIVE)
[2024-03-01] MEDS: METOCLOPRAMIDE HCL INJECTION 10 MG/2 ML VIAL IVPB SCH (18:37)
[2024-03-01] MEDS: ATORVASTATIN CA 10 MG TABLET (FP) PO SCH (22:15)
[2024-03-02 08:51] LABS: BASO % 0.4 % (0-2.0); EOS % 0.9 % (0-4.5); HEMATOCRIT 34.8 % (32.4-45.2); HEMOGLOBIN 11.4 GM/dL (10.7-15.3); LYMPH % 25.4 % (8-40); MCH 28.9 pg (25.7-33.7); MCHC 32.6 g/dl (32.0-36.0); MEAN CELL VOLUME 88.7 fl (80-96); MEAN PLT VOLUME 9.4 fl (7.5-11.1); MONO % 8.9 % (3.8-10.2); NEUT % 64.4 % (42.8-82.8); PLATELET COUNT 253 10^3/uL (134-434); RBC 3.93 M/mm3 (3.60-5.2); RDW 14.6 % (11.6-15.6); WHITE BLOOD COUNT 9.1 K/mm3 (4.0-10.0)
[2024-03-02 09:09] LABS: POTASSIUM 5.4 mmol/L (3.5-5.1)
[2024-03-02 09:11] LABS: CALCIUM 8.6 mg/dL (8.5-10.1)
[2024-03-02 09:12] LABS: BLOOD UREA NITROGEN 18.4 mg/dL (7-18)
[2024-03-02 09:15] LABS: CREATININE 1.1 mg/dL (0.55-1.3)
[2024-03-02] MEDS: SODIUM POLYSTYRENE SULFONATE 15 GM/60 ML BOTTLE PO ONE (13:54)
[2024-03-03 08:57] LABS: POTASSIUM 4.3 mmol/L (3.5-5.1)
[2024-03-03 09:00] LABS: CALCIUM 8.4 mg/dL (8.5-10.1)
[2024-03-03 09:01] LABS: BLOOD UREA NITROGEN 15.2 mg/dL (7-18)
[2024-03-03 09:04] LABS: CREATININE 1.1 mg/dL (0.55-1.3)
[2024-03-03 22:57] VITALS: RESP 18
[2024-03-04] MEDS: PANTOPRAZOLE 40 MG TABLET PO SCH (10:41)
[2024-03-04] MEDS: POLYETHYLENE GLYCOL (HEALTHYLAX) 3350 17 GM PACKET PO SCH (10:41)
[2024-03-04 15:44] VITALS: BP 128/80; PULSE 74; TEMP 98.1
== END 2024-03-04 18:20 ==
LOC: JER 12:27 → UNDOADMOB 18:03 → JERBED 18:03 → OBSVTOIN 03-01 00:50 → INTOOBSV 03-01 00:50 → J7W 03-01 01:06 → JERBED 03-01 01:06 → J7W 03-02 12:27
PROVIDERS: ADMIT Internal Medicine; ATTEND Internal Medicine
PROC: 3E033GC Introduction of Other Therapeutic Substance into Peripheral Vein, Percutaneous Approach (ICD-10-PCS; principal; 2024-03-02)
PROC: 3E0337Z Introduction of Electrolytic and Water Balance Substance into Peripheral Vein, Percutaneous Approach (ICD-10-PCS; 2024-03-02)
PROC: 3E013GC Introduction of Other Therapeutic Substance into Subcutaneous Tissue, Percutaneous Approach (ICD-10-PCS; 2024-03-02)
DX: U07.1 COVID-19 (principal); R11.2 Nausea with vomiting, unspecified; R10.13 Epigastric pain; K29.70 Gastritis, unspecified, without bleeding; I51.7 Cardiomegaly; I71.40 Abdominal aortic aneurysm, without rupture, unspecified; E11.40 Type 2 diabetes mellitus with diabetic neuropathy, unspecified; I10 Essential (primary) hypertension; Z29.89 Encounter for other specified prophylactic measures; J44.9 Chronic obstructive pulmonary disease, unspecified; E05.90 Thyrotoxicosis, unspecified without thyrotoxic crisis or storm; C18.9 Malignant neoplasm of colon, unspecified; R29.6 Repeated falls; Z99.3 Dependence on wheelchair; Z79.84 Long term (current) use of oral hypoglycemic drugs; Z91.041 Radiographic dye allergy status; E87.20 Acidosis, unspecified
CPT/HCPCS: 0241U-QW; 36415; 71045-TC-FY; 71275-TC; 74174-TC; 80048; 80053; 81003; 82010; 82803; 82962; 83605; 83735; 84100; 84484; 85025; 85027; 85610; 85730; 86850; 86900; 86901; 93005; 93010; 96365; 96372; 96375; 96376; 97116-GP; 99285-25; G0378; J0131; Q9967

== ENCOUNTER 2025-01-13 20:13 | Inpatient (IN) | payer OTHER ==
[2025-01-13] MEDS ORDERED: ONDANSETRON 4 MG/2 ML VIAL ONE (22:01)
[2025-01-13] MEDS: ONDANSETRON 4 MG/2 ML VIAL IVPUSH ONE (22:02)
[2025-01-13 22:04] LABS: ABSOLUTE IMMATURE GRANULOCYTES 0.06 x10^3/uL (0.0-0.031); BASOPHILS # 0.05 x10^3/uL (0.01-0.08); EOSINOPHIL % 0.1 % (0.7-5.8); EOSINOPHILS # 0.01 x10^3/uL (0.04-0.36); HEMATOCRIT 38.4 % (34.1-44.9); HEMOGLOBIN 12.7 g/dL (11.2-15.7); MCHC 33.1 g/dl (32.2-35.5); MEAN CELL VOLUME 91.9 fl (79.4-94.8); MEAN PLT VOLUME 9.8 fl (9.4-12.3); MONOCYTE # 1.95 x10^3/uL (0.24-0.86); MONOCYTE % 12.1 % (4.7-12.5); PLATELET COUNT 383 x10^3/uL (182-369); RDW 12.6 % (12.4-16.6)
[2025-01-13 22:11] LABS: INR 1.16 (0.83-1.09); PROTHROMBIN TIME (PATIENT) 12.6 SEC (9.7-13.0)
[2025-01-13 22:14] LABS: ACTIVATED PTT 27.9 SECONDS (25.2-36.5)
[2025-01-13] MEDS ORDERED: oxyCODONE HCL 5 MG TABLET ONE (22:17)
[2025-01-13 22:22] LABS: POTASSIUM 3.4 mmol/L (3.5-5.1)
[2025-01-13 22:24] LABS: CALCIUM 9.6 mg/dL (8.5-10.1)
[2025-01-13 22:25] LABS: ALBUMIN 3.2 g/dl (3.4-5.0); BLOOD UREA NITROGEN 15.1 mg/dL (7-18)
[2025-01-13] MEDS: oxyCODONE HCL 5 MG TABLET PO ONE (22:27)
[2025-01-13 22:29] LABS: TOT PROT 6.8 g/dl (6.4-8.2)
[2025-01-13 22:41] LABS: BILIRUBIN,TOTAL 0.8 mg/dL (0.2-1); CREATININE 1.3 mg/dL (0.55-1.3)
[2025-01-14] MEDS ORDERED: oxyCODONE HCL 5 MG TABLET PO PRN (03:54)
[2025-01-14 04:30] LABS: EPI CELLS 11 /uL (0-25.1); HYALINE CASTS 0 /uL (0-3.1); PH,URINE 5.5 (5.0-8.0); URINE APPEARANCE CLOUDY; URINE BACTERIA >9,000 /uL (0-1359); URINE BILIRUBIN NEGATIVE (NEGATIVE); URINE COLOR YELLOW; URINE GLUCOSE (UA) NEGATIVE (NEGATIVE); URINE KETONE NEGATIVE (NEGATIVE); URINE LEUK ESTERASE 3+ (NEGATIVE); URINE NITRITE POSITIVE (NEGATIVE); URINE PROTEIN 2+ (NEGATIVE); URINE RBC 327 /uL (0-23.9); URINE UROBILINOGEN 0.2 mg/dL (0.2-1.0); URINE WBC 970 /uL (0-25.8)
[2025-01-14] MEDS ORDERED: POTASSIUM CHLORIDE TABS 20 MEQ TABLET.ER (FP) PO ONE (04:48)
[2025-01-14] MEDS ORDERED: MEROPENEM-0.9% SODIUM CHLORIDE 1 GM/50 ML BAG IVPB ONE (04:49)
[2025-01-14] MEDS ORDERED: ACETAMINOPHEN 325 MG TABLET (FP) PO PRN (04:58)
[2025-01-14] MEDS: POTASSIUM CHLORIDE TABS 20 MEQ TABLET.ER (FP) PO ONE (04:59)
[2025-01-14] MEDS: MEROPENEM 1 GM in DEXTROSE 5%-WATER 100 ML IVPB ONE (05:00)
[2025-01-14] MEDS ORDERED: DEXTROSE 50%-WATER - 25 GM/50 ML VIAL IVPUSH PRN ×2 (05:27→12:16)
[2025-01-14] MEDS: SODIUM CHLORIDE 1,000 ML IV SCH ×2 (05:46→17:00)
[2025-01-14 06:09] LABS: POTASSIUM 3.8 mmol/L (3.5-5.1)
[2025-01-14 06:11] LABS: ALBUMIN 3.3 g/dl (3.4-5.0); BLOOD UREA NITROGEN 16.1 mg/dL (7-18); CALCIUM 9.5 mg/dL (8.5-10.1)
[2025-01-14 06:15] LABS: CREATININE 1.3 mg/dL (0.55-1.3)
[2025-01-14 06:16] LABS: BILIRUBIN,TOTAL 0.7 mg/dL (0.2-1); TOT PROT 7.1 g/dl (6.4-8.2)
[2025-01-14] MEDS: GABAPENTIN 100 MG CAPSULE PO SCH ×2 (06:28→14:00)
[2025-01-14] MEDS: INSULIN ASPART SLIDING SCALE (NOVOLOG) 1 VIAL SQ SCH ×2 (06:29→18:29)
[2025-01-14 06:37] LABS: HEMATOCRIT 41.1 % (34.1-44.9); HEMOGLOBIN 13.1 g/dL (11.2-15.7); MCHC 31.9 g/dl (32.2-35.5); MEAN CELL VOLUME 94.9 fl (79.4-94.8); MEAN PLT VOLUME 10.5 fl (9.4-12.3); PLATELET COUNT 356 x10^3/uL (182-369); RDW 12.6 % (12.4-16.6)
[2025-01-14] MEDS: PIPERACILLIN/TAZOB 3.375 GM 3.375 GM in DEXTROSE 5%-WATER - 50 ML IVPB SCH ×2 (07:10→18:30)
[2025-01-14] MEDS ORDERED: ERTAPENEM SODIUM 1 GM in SODIUM CHLORIDE 50 ML IVPB SCH (10:00)
[2025-01-14] MEDS: ONDANSETRON 4 MG/2 ML VIAL IVPUSH ONE (10:27)
[2025-01-14] MEDS: LABETALOL HCL 20 MG/4 ML VIAL IVPB ONE (10:37)
[2025-01-14] MEDS: ACETAMINOPHEN 1000 MG/100 ML BAG IVPB ONE (10:41)
[2025-01-14] MEDS: metoPROLOL SUCCINATE 25 MG TAB.SR.24H (FP) PO SCH (12:11)
[2025-01-14] MEDS: LIDOCAINE 4% PATCH TP SCH (12:11)
[2025-01-14] MEDS: METHIMAZOLE 5 MG TABLET PO SCH (12:19)
[2025-01-14] MEDS: hydrALAZINE HCL 20 MG/ML VIAL IVPB ONE (12:19)
[2025-01-14] MEDS: MEROPENEM 1 GM in DEXTROSE 5%-WATER 100 ML IVPB SCH ×2 (13:00→15:23)
[2025-01-14 13:42] LABS: LACTIC ACID 2.4 mmol/L (0.4-2.0)
[2025-01-14] MEDS: SODIUM CHLORIDE 1,000 ML IV STA ×2 (16:10→23:35)
[2025-01-14 16:40] LABS: LACTIC ACID 3.3 mmol/L (0.4-2.0)
[2025-01-14 21:30] LABS: LACTIC ACID 3.8 mmol/L (0.4-2.0)
[2025-01-14] MEDS ORDERED: LIDOCAINE PATCH REMOVAL MC SCH (22:00)
[2025-01-14] MEDS ORDERED: ATORVASTATIN CA 10 MG TABLET (FP) PO SCH (22:00)
[2025-01-14] MEDS: LIDOCAINE PATCH REMOVAL MC SCH (22:01)
[2025-01-14] MEDS: ATORVASTATIN CA 10 MG TABLET (FP) PO SCH (22:11)
[2025-01-15 04:17] LABS: LACTIC ACID 3.2 mmol/L (0.4-2.0)
[2025-01-15 06:47] LABS: HEMATOCRIT 35.7 % (34.1-44.9); HEMOGLOBIN 11.3 g/dL (11.2-15.7); MCHC 31.7 g/dl (32.2-35.5); MEAN CELL VOLUME 94.7 fl (79.4-94.8); PLATELET COUNT 301 x10^3/uL (182-369); RDW 12.9 % (12.4-16.6)
[2025-01-15 07:09] LABS: POTASSIUM 3.6 mmol/L (3.5-5.1)
[2025-01-15 07:18] LABS: BILIRUBIN,TOTAL 0.5 mg/dL (0.2-1); CALCIUM 8.4 mg/dL (8.5-10.1); MAGNESIUM 2.2 mg/dL (1.8-2.4); TOT PROT 6.1 g/dl (6.4-8.2)
[2025-01-15 07:19] LABS: CREATININE 1.3 mg/dL (0.55-1.3)
[2025-01-15 07:20] LABS: PHOSPHOROUS 2.7 mg/dL (2.5-4.9)
[2025-01-15 07:31] LABS: ALBUMIN 2.6 g/dl (3.4-5.0)
[2025-01-15] MEDS: LIDOCAINE 4% PATCH TP SCH (09:36)
[2025-01-15] MEDS: metoPROLOL SUCCINATE 25 MG TAB.SR.24H (FP) PO SCH (09:37)
[2025-01-15] MEDS: METHIMAZOLE 5 MG TABLET PO SCH (09:38)
[2025-01-15] MEDS: SODIUM CHLORIDE 1,000 ML IV SCH (13:10)
[2025-01-15] MEDS: LORazepam 2 MG/ML SDV VIAL IVPUSH ONE (19:48)
[2025-01-15] MEDS: ACETAMINOPHEN 500 MG TABLET (FP) PO PRN (20:20)
[2025-01-15] MEDS: LABETALOL HCL 20 MG/4 ML VIAL IVPUSH ONE (20:21)
[2025-01-15] MEDS: VANCOMYCIN/WATER FOR INJ (PEG) 1,000 MG/200 ML BAG IVPB ONE (21:30)
[2025-01-16] MEDS ORDERED: PIPERACILLIN/TAZOB 3.375 GM 3.375 GM in DEXTROSE 5%-WATER - 50 ML IVPB SCH (03:00)
[2025-01-16 06:33] LABS: HEMOGLOBIN 11.3 g/dL (11.2-15.7); MCHC 32.3 g/dl (32.2-35.5); MEAN CELL VOLUME 95.4 fl (79.4-94.8); PLATELET COUNT 305 x10^3/uL (182-369); RDW 12.9 % (12.4-16.6)
[2025-01-16 06:53] LABS: CALCIUM 8.7 mg/dL (8.5-10.1)
[2025-01-16 06:54] LABS: ALBUMIN 2.5 g/dl (3.4-5.0); BLOOD UREA NITROGEN 21.1 mg/dL (7-18); MAGNESIUM 2.3 mg/dL (1.8-2.4)
[2025-01-16 06:57] LABS: CREATININE 1.4 mg/dL (0.55-1.3); PHOSPHOROUS 2.6 mg/dL (2.5-4.9)
[2025-01-16 06:58] LABS: BILIRUBIN,TOTAL 0.5 mg/dL (0.2-1)
[2025-01-16] MEDS: POTASSIUM CHLORIDE ORAL LIQUID 20 MEQ/15 ML PO ONE (09:21)
[2025-01-16] MEDS: MEROPENEM 1 GM in DEXTROSE 5%-WATER 100 ML IVPB SCH (17:18)
[2025-01-16] MEDS ORDERED: LORazepam 2 MG/ML SDV VIAL ONE (17:36)
[2025-01-16] MEDS: LORazepam 2 MG/ML SDV VIAL IVPUSH ONE (17:37)
[2025-01-16] MEDS: oxyCODONE HCL 5 MG TABLET PO PRN (21:00)
[2025-01-17 07:05] LABS: HEMATOCRIT 32.9 % (34.1-44.9); HEMOGLOBIN 10.5 g/dL (11.2-15.7); MCHC 31.9 g/dl (32.2-35.5); MEAN CELL VOLUME 94.5 fl (79.4-94.8); MEAN PLT VOLUME 10.2 fl (9.4-12.3); PLATELET COUNT 307 x10^3/uL (182-369); RDW 13.2 % (12.4-16.6)
[2025-01-17] MEDS ORDERED: ONDANSETRON 4 MG/2 ML VIAL IVPUSH PRN (07:54)
[2025-01-17 07:55] LABS: POTASSIUM 3.3 mmol/L (3.5-5.1)
[2025-01-17 08:01] LABS: ALBUMIN 2.3 g/dl (3.4-5.0); CALCIUM 8.6 mg/dL (8.5-10.1)
[2025-01-17 08:02] LABS: BLOOD UREA NITROGEN 16.2 mg/dL (7-18); MAGNESIUM 2.3 mg/dL (1.8-2.4)
[2025-01-17 08:05] LABS: CREATININE 0.7 mg/dL (0.55-1.3); PHOSPHOROUS 1.6 mg/dL (2.5-4.9)
[2025-01-17 08:06] LABS: BILIRUBIN,TOTAL 0.2 mg/dL (0.2-1); TOT PROT 5.6 g/dl (6.4-8.2)
[2025-01-17] MEDS: LACTATED RINGERS SOLUTION 1,000 ML/1,000 ML INFUS.BAG IV SCH (09:41)
[2025-01-17] MEDS: POLYETHYLENE GLYCOL (HEALTHYLAX) 3350 17 GM PACKET PO SCH (09:42)
[2025-01-17] MEDS: LACTOBACILLUS ACIDOPHILUS 1 TABLET PO SCH (09:42)
[2025-01-17] MEDS: POTASSIUM PHOSPHATE 15 MM in SODIUM CHLORIDE 250 ML IVPB ONE (12:38)
[2025-01-17] MEDS: oxyCODONE HCL 5 MG TABLET PO PRN (13:10)
[2025-01-17] MEDS: LABETALOL HCL 20 MG/4 ML VIAL IVPB ONE (14:50)
[2025-01-17] MEDS: LORazepam 2 MG/ML SDV VIAL IVPUSH ONE (18:17)
[2025-01-17] MEDS: KETOROLAC TROMETHAMINE 30 MG/1 ML VIAL IVPUSH PRN (23:03)
[2025-01-18 07:36] LABS: ABSOLUTE IMMATURE GRANULOCYTES 0.18 x10^3/uL (0.0-0.031); BASOPHILS # 0.06 x10^3/uL (0.01-0.08); EOSINOPHILS # 0.22 x10^3/uL (0.04-0.36); HEMATOCRIT 33.7 % (34.1-44.9); HEMOGLOBIN 10.8 g/dL (11.2-15.7); MEAN CELL VOLUME 93.1 fl (79.4-94.8); MEAN PLT VOLUME 10.2 fl (9.4-12.3); MONOCYTE # 1.04 x10^3/uL (0.24-0.86); MONOCYTE % 9.4 % (4.7-12.5); PLATELET COUNT 306 x10^3/uL (182-369); RDW 12.9 % (12.4-16.6)
[2025-01-18 08:30] LABS: BLOOD UREA NITROGEN 11.8 mg/dL (7-18); CALCIUM 8.6 mg/dL (8.5-10.1); CREATININE 0.8 mg/dL (0.55-1.3); MAGNESIUM 2.1 mg/dL (1.8-2.4); PHOSPHOROUS 2.4 mg/dL (2.5-4.9); POTASSIUM 3.2 mmol/L (3.5-5.1)
[2025-01-18] MEDS: LABETALOL HCL 20 MG/4 ML VIAL IVPUSH PRN (12:08)
[2025-01-18] MEDS: POTASSIUM CHLORIDE TABS 20 MEQ TABLET.ER (FP) PO SCH (13:35)
[2025-01-18] MEDS ORDERED: amLODIPine BESYLATE 2.5 MG TABLET (FP) PO ONE (14:17)
[2025-01-18] MEDS: FUROSEMIDE 40 MG/4 ML INJECTABLE VIAL IVPUSH ONE (14:26)
[2025-01-18] MEDS: hydrALAZINE HCL 20 MG/ML VIAL IVPUSH ONE (14:26)
[2025-01-18] MEDS: KCL 10 MEQ IVPB 10 MEQ/100 ML INFUS.BAG IVPB SCH (15:34)
[2025-01-18] MEDS: POTASSIUM CHLORIDE ORAL LIQUID 20 MEQ/15 ML PO ONE (18:11)
[2025-01-18] MEDS: METOPROLOL TARTRATE 50 MG TABLET (FP) PO SCH (21:34)
[2025-01-18] MEDS: oxyCODONE HCL 5 MG TABLET PO PRN (22:02)
[2025-01-19 06:36] LABS: ABSOLUTE IMMATURE GRANULOCYTES 0.12 x10^3/uL (0.0-0.031); BASOPHILS # 0.05 x10^3/uL (0.01-0.08); EOSINOPHIL % 3.3 % (0.7-5.8); EOSINOPHILS # 0.36 x10^3/uL (0.04-0.36); HEMATOCRIT 33.8 % (34.1-44.9); HEMOGLOBIN 11.1 g/dL (11.2-15.7); MCHC 32.8 g/dl (32.2-35.5); MEAN CELL VOLUME 92.1 fl (79.4-94.8); MEAN PLT VOLUME 9.7 fl (9.4-12.3); MONOCYTE # 1.05 x10^3/uL (0.24-0.86); MONOCYTE % 9.5 % (4.7-12.5); PLATELET COUNT 312 x10^3/uL (182-369); RDW 12.9 % (12.4-16.6)
[2025-01-19 06:49] LABS: POTASSIUM 3.6 mmol/L (3.5-5.1)
[2025-01-19 06:56] LABS: CALCIUM 8.8 mg/dL (8.5-10.1)
[2025-01-19 06:57] LABS: ALBUMIN 2.3 g/dl (3.4-5.0); BLOOD UREA NITROGEN 15.9 mg/dL (7-18); MAGNESIUM 2.2 mg/dL (1.8-2.4)
[2025-01-19 06:58] LABS: BILIRUBIN,TOTAL 0.3 mg/dL (0.2-1)
[2025-01-19 06:59] LABS: TOT PROT 5.6 g/dl (6.4-8.2)
[2025-01-19 07:00] LABS: CREATININE 0.8 mg/dL (0.55-1.3)
[2025-01-19] MEDS ORDERED: amLODIPine BESYLATE 5 MG TABLET (FP) PO SCH (10:00)
[2025-01-19] MEDS: LOSARTAN POTASSIUM 50 MG TABLET PO SCH (10:47)
[2025-01-19] MEDS: amLODIPine BESYLATE 5 MG TABLET (FP) PO SCH (10:47)
[2025-01-19 14:39] VITALS: BMI 30.5
[2025-01-19] MEDS: predniSONE 20 MG TABLET (UD) PO ONE (19:51)
[2025-01-20] MEDS: predniSONE 20 MG TABLET (UD) PO ONE ×2 (01:05→08:04)
[2025-01-20 06:21] LABS: HEMATOCRIT 36.1 % (34.1-44.9); HEMOGLOBIN 11.9 g/dL (11.2-15.7); MEAN CELL VOLUME 90.9 fl (79.4-94.8); MEAN PLT VOLUME 9.8 fl (9.4-12.3); PLATELET COUNT 378 x10^3/uL (182-369); RDW 12.5 % (12.4-16.6)
[2025-01-20 06:44] LABS: POTASSIUM 4.3 mmol/L (3.5-5.1)
[2025-01-20 06:48] LABS: CALCIUM 9.2 mg/dL (8.5-10.1)
[2025-01-20 06:49] LABS: ALBUMIN 2.5 g/dl (3.4-5.0); BLOOD UREA NITROGEN 21.4 mg/dL (7-18); MAGNESIUM 2.4 mg/dL (1.8-2.4)
[2025-01-20 06:52] LABS: CREATININE 0.9 mg/dL (0.55-1.3); PHOSPHOROUS 4.2 mg/dL (2.5-4.9)
[2025-01-20 06:53] LABS: BILIRUBIN,TOTAL 0.4 mg/dL (0.2-1); TOT PROT 6.4 g/dl (6.4-8.2)
[2025-01-20] MEDS: diphenhydrAMINE HCL 25 MG CAPSULE (FP) PO ONE (08:04)
[2025-01-20] MEDS: METHIMAZOLE 10 MG TABLET PO SCH (10:00)
[2025-01-21 06:33] LABS: BASOPHILS # 0.03 x10^3/uL (0.01-0.08); HEMATOCRIT 39.1 % (34.1-44.9); HEMOGLOBIN 12.5 g/dL (11.2-15.7); MEAN CELL VOLUME 91.4 fl (79.4-94.8); MEAN PLT VOLUME 9.7 fl (9.4-12.3); MONOCYTE # 1.33 x10^3/uL (0.24-0.86); MONOCYTE % 8.4 % (4.7-12.5); PLATELET COUNT 471 x10^3/uL (182-369); RDW 12.6 % (12.4-16.6)
[2025-01-21 06:58] LABS: POTASSIUM 3.6 mmol/L (3.5-5.1)
[2025-01-21 07:04] LABS: ALBUMIN 2.7 g/dl (3.4-5.0)
[2025-01-21 07:05] LABS: BLOOD UREA NITROGEN 34.4 mg/dL (7-18); CALCIUM 9.6 mg/dL (8.5-10.1)
[2025-01-21 07:06] LABS: MAGNESIUM 2.5 mg/dL (1.8-2.4)
[2025-01-21 07:08] LABS: CREATININE 1.1 mg/dL (0.55-1.3)
[2025-01-21 07:09] LABS: BILIRUBIN,TOTAL 0.3 mg/dL (0.2-1); TOT PROT 6.6 g/dl (6.4-8.2)
[2025-01-21 14:09] VITALS: RESP 18
[2025-01-21] MEDS: LIDOCAINE 5% TOPICAL PATCH TP SCH (15:21)
[2025-01-21] MEDS ORDERED: ONDANSETRON 4 MG/2 ML VIAL IVPUSH PRN (15:29)
[2025-01-21] MEDS ORDERED: ACETAMINOPHEN 500 MG TABLET (FP) PO PRN (15:29)
[2025-01-21] MEDS ORDERED: DEXTROSE 50%-WATER - 25 GM/50 ML VIAL IVPUSH PRN (15:29)
[2025-01-21] MEDS ORDERED: LABETALOL HCL 20 MG/4 ML VIAL IVPUSH PRN (15:29)
[2025-01-21] MEDS ORDERED: INSULIN ASPART SLIDING SCALE (NOVOLOG) 1 VIAL SQ SCH (16:30)
[2025-01-21] MEDS: INSULIN ASPART SLIDING SCALE (NOVOLOG) 1 VIAL SQ SCH (17:49)
[2025-01-21] MEDS: MEROPENEM 1 GM in DEXTROSE 5%-WATER 100 ML IVPB SCH (18:19)
[2025-01-21] MEDS: LIDOCAINE PATCH REMOVAL MC SCH ×2 (22:17→22:18)
[2025-01-21] MEDS: HEPARIN NA (PORCINE) 5,000 UNITS/ML 1ML VIAL SQ SCH (22:17)
[2025-01-21] MEDS: METOPROLOL TARTRATE 50 MG TABLET (FP) PO SCH (22:17)
[2025-01-21] MEDS: ATORVASTATIN CA 10 MG TABLET (FP) PO SCH (22:17)
[2025-01-21] MEDS: GABAPENTIN 100 MG CAPSULE PO SCH (22:17)
[2025-01-21] MEDS: INSULIN GLARGINE (LANTUS) 100 UNITS/ML UNITS SQ SCH (22:18)
[2025-01-21] MEDS: METHIMAZOLE 10 MG TABLET PO SCH (23:15)
[2025-01-21] MEDS: traMADol HCL 50 MG TABLET PO ONE (23:16)
[2025-01-21] MEDS ORDERED: DEXTROSE 50%-WATER 25 GM/50 ML DISP.SYRIN IVPUSH PRN (23:37)
[2025-01-22 08:22] LABS: ABSOLUTE IMMATURE GRANULOCYTES 0.22 x10^3/uL (0.0-0.031); BASOPHILS # 0.05 x10^3/uL (0.01-0.08); EOSINOPHIL % 1.7 % (0.7-5.8); EOSINOPHILS # 0.24 x10^3/uL (0.04-0.36); HEMATOCRIT 35.3 % (34.1-44.9); HEMOGLOBIN 11.2 g/dL (11.2-15.7); MCHC 31.7 g/dl (32.2-35.5); MEAN CELL VOLUME 94.4 fl (79.4-94.8); MEAN PLT VOLUME 10.5 fl (9.4-12.3); MONOCYTE # 1.33 x10^3/uL (0.24-0.86); MONOCYTE % 9.3 % (4.7-12.5); PLATELET COUNT 350 x10^3/uL (182-369); RDW 12.8 % (12.4-16.6)
[2025-01-22 08:52] LABS: POTASSIUM 4.4 mmol/L (3.5-5.1)
[2025-01-22 08:57] LABS: ALBUMIN 2.5 g/dl (3.4-5.0); BLOOD UREA NITROGEN 35.2 mg/dL (7-18); CALCIUM 9.7 mg/dL (8.5-10.1); MAGNESIUM 2.3 mg/dL (1.8-2.4)
[2025-01-22 09:01] LABS: BILIRUBIN,TOTAL 0.3 mg/dL (0.2-1)
[2025-01-22] MEDS ORDERED: SODIUM CHLORIDE 1,000 ML IV SCH (09:15)
[2025-01-22] MEDS: LACTOBACILLUS ACIDOPHILUS 1 TABLET PO SCH (10:41)
[2025-01-22] MEDS: LIDOCAINE 4% PATCH TP SCH (10:41)
[2025-01-22] MEDS: amLODIPine BESYLATE 5 MG TABLET (FP) PO SCH (10:41)
[2025-01-22] MEDS: LOSARTAN POTASSIUM 50 MG TABLET PO SCH (10:42)
[2025-01-22] MEDS: POLYETHYLENE GLYCOL (HEALTHYLAX) 3350 17 GM PACKET PO SCH (10:43)
[2025-01-22 14:43] VITALS: BP 108/63; PULSE 64; TEMP 98.8
== END 2025-01-22 17:50 | DRG 872 ==
LOC: JER 20:13 → JERBED 01-14 01:17 → OBSVTOIN 01-14 04:53 → J5S 01-14 06:08 → J2W 01-14 11:55 → J8W 01-21 12:35
PROVIDERS: ADMIT Internal Medicine; ATTEND Nurse Practitioner Family
PROC: 02HV33Z Insertion of Infusion Device into Superior Vena Cava, Percutaneous Approach (ICD-10-PCS; principal; 2025-01-22)
PROC: B548ZZA Ultrasonography of Superior Vena Cava, Guidance (ICD-10-PCS; 2025-01-22)
DX: A41.50 Gram-negative sepsis, unspecified (principal); I16.1 Hypertensive emergency; E87.20 Acidosis, unspecified; N39.0 Urinary tract infection, site not specified; Z16.12 Extended spectrum beta lactamase (ESBL) resistance; C18.9 Malignant neoplasm of colon, unspecified; E11.40 Type 2 diabetes mellitus with diabetic neuropathy, unspecified; I10 Essential (primary) hypertension; J44.9 Chronic obstructive pulmonary disease, unspecified; E05.90 Thyrotoxicosis, unspecified without thyrotoxic crisis or storm; I25.10 Atherosclerotic heart disease of native coronary artery without angina pectoris; E87.6 Hypokalemia; I71.40 Abdominal aortic aneurysm, without rupture, unspecified; I48.91 Unspecified atrial fibrillation
CPT/HCPCS: 0241U-QW; 36415; 36569; 70450-TC; 71045-TC-FY; 71275-TC; 74174-TC; 74176-TC; 74181-TC; 76705-TC; 80048; 80053; 81003; 82962; 83036; 83605; 83690; 83735; 84100; 84439; 84443; 84484; 85025; 85027; 85610; 85730; 86850; 86900; 86901; 87040; 87086; 87186; 87481; 93005; 93010; 97116-GP; 97161-GP; 99285-25; G0378; J0131; J1644; Q9967